=== PATIENT | female | born 1935 | race Caucasian/White ===

== ENCOUNTER 2017-05-18 12:22 | Inpatient (IN) | payer MEDICARE, OTHER ==
[~2017-05-18] VITALS: Ht 162.6 cm; Wt 94.8 kg
[2017-05-18] MEDS ORDERED: nitroGLYCERIN 0.4mg SUBLingual tab SL PRN (16:10)
[2017-05-18] MEDS ORDERED: regadenoson 0.4mg/5ml syringe IV PRN (16:10)
[2017-05-18] MEDS ORDERED: metoprolol tartrate 1mg/ml inj IV PRN (16:10)
[2017-05-18] MEDS ORDERED: aminophylline 250mg/10ml inj. IV PRN (16:10)
[2017-05-18] MEDS ORDERED: bisacodyl 10mg suppository rectal RC PRN (16:20)
[2017-05-18] MEDS ORDERED: heparin 10,000 units/1 ML INJ IV ONE (16:20)
[2017-05-18] MEDS ORDERED: glucagon, human recombinant 1mg kit SUBCUT PRN (16:20)
[2017-05-18] MEDS ORDERED: magnesium 2GM in 50ml NS 50 ML IV PRN (16:20)
[2017-05-18] MEDS ORDERED: MESSAGE TO PHARMACY PO ONE (16:20)
[2017-05-18] MEDS ORDERED: ondansetron/PF 4mg/2ml inj IV PRN (16:20)
[2017-05-18] MEDS ORDERED: mag hydrox/Alum hydrox/simeth 30ml oral suspension PO PRN (16:20)
[2017-05-18] MEDS ORDERED: magnesium 4gm in 100ml NS 100 ML IV PRN (16:20)
[2017-05-18] MEDS ORDERED: ipratropium/albuterol 3ml nebule NEB PRN (16:20)
[2017-05-18] MEDS ORDERED: dextrose 50%-water 50ml dispensing syringe IV PRN ×2 (16:20)
[2017-05-18] MEDS ORDERED: potassium Cl 20 mEq SR tablet PO PRN ×2 (16:20)
[2017-05-18] MEDS ORDERED: potassium Cl 40MEQ/NS 500ml 500 ML IV PRN ×2 (16:20)
[2017-05-18] MEDS ORDERED: dextrose ORAL solution 15 GM/59 ML bottle PO PRN ×2 (16:20)
[2017-05-18 17:11] LABS: BASOPHILS # (AUTO) 0.1 X10'3 (0-0.2); BASOPHILS % (AUTO) 0.8 % (0-1); EOSINOPHILS # (AUTO) 0.3 X10'3 (0-0.9); EOSINOPHILS % (AUTO) 3.4 % (0-6); HEMATOCRIT 35.5 % (35.0-45.0); HEMOGLOBIN 10.9 g/dl (12.0-16.0); LYMPHOCYTES % (AUTO) 12.2 % (21-51); MEAN CORPUSCULAR HEMOGLOBIN 23.4 PG (27.0-31.0); MEAN CORPUSCULAR HGB CONC 30.6 % (33.0-36.5); MEAN CORPUSCULAR VOLUME 76.5 FL (78-98); MEAN PLATELET VOLUME 8.6 FL (7.4-10.4); MONOCYTES # (AUTO) 0.7 X10'3 (0-0.9); MONOCYTES % (AUTO) 8.5 % (2-12); NEUTROPHILS # (AUTO) 6.3 X10'3 (1.8-7.7); NEUTROPHILS % (AUTO) 75.1 % (42-75); PLATELET COUNT 191 X10'3 (140-440); RED BLOOD COUNT 4.64 X10'6 (4.20-5.60); WHITE BLOOD COUNT 8.4 X10'3 (4.5-11.0)
[2017-05-18 17:22] LABS: INR 1.1 INR; PARTIAL THROMBOPLASTIN TIME 28 SECONDS (22-32); PROTHROMBIN TIME 11.1 SECONDS (9.0-12.0)
[2017-05-18 17:24] LABS: HEMOGLOBIN A1C 7.5 % (4.5-6.2)
[2017-05-18 17:34] VITALS: BP 137/70
[2017-05-18 17:34] LABS: ALANINE AMINOTRANSFERASE 16 U/L (12-78); ALBUMIN 2.4 G/DL (3.4-5.0); ALBUMIN/GLOBULIN RATIO 0.5 (1.1-1.5); ALKALINE PHOSPHATASE 56 IU/L (46-116); ANION GAP -1 (8-16); ASPARTATE AMINO TRANSFERASE 18 U/L (10-37); BILIRUBIN,TOTAL 0.8 MG/DL (0.1-1.0); BLOOD UREA NITROGEN 24 MG/DL (7-18); BUN/CREATININE RATIO 21.8 (6.6-38.0); CHLORIDE 101 MMOL/L (99-107); GLUCOSE 188 MG/DL (70-104); POTASSIUM 4.3 MMOL/L (3.5-5.1); SODIUM 142 MMOL/L (135-145); TOTAL PROTEIN 6.9 G/DL (6.4-8.2); eGFR 48 ML/MIN
[2017-05-18] MEDS ORDERED: ENOX40SY7 SUBCUT (17:34)
[2017-05-18] MEDS ORDERED: GABA-532 PO (17:34)
[2017-05-18] MEDS ORDERED: ATOR20TA PO (17:36)
[2017-05-18] MEDS ORDERED: INSU100C4 SQ (17:36)
[2017-05-18] MEDS ORDERED: TRAZ-146 PO (17:37)
[2017-05-18] MEDS ORDERED: LANTUS SQ (17:37)
[2017-05-18] MEDS ORDERED: PANT20TA3 PO (17:38)
[2017-05-18] MEDS ORDERED: METO-395 PO (17:38)
[2017-05-18] MEDS ORDERED: MONT10TA21 PO (17:39)
[2017-05-18] MEDS ORDERED: POTA10TA19 PO (17:39)
[2017-05-18] MEDS ORDERED: LYR75C PO (17:40)
[2017-05-18] MEDS ORDERED: FURO80TA3 PO (17:41)
[2017-05-18] MEDS ORDERED: DULO60CA45 PO (17:41)
[2017-05-18] MEDS ORDERED: HYDR-569 PO (17:42)
[2017-05-18] MEDS ORDERED: ZAR2.5T PO (17:43)
[2017-05-18 17:48] LABS: TOTAL CARBON DIOXIDE 41.5 MMOL/L (24-32)
[2017-05-18 18:35] LABS: ABG BASE EXCESS 12.8 mmol/L (-2.0-3.0); ABG HCO3 40.1 mmol/L (22.0-26.0); ABG OXYGEN SATURATION 94.5 % (95-98); ABG PCO2 (T) 67.3 mmHg (32.0-45.0); ABG PH (T) 7.393 (7.350-7.450); ABG PO2 (T) 73.6 mmHg (83-108); ALLEN'S TEST Positive; FCOHb 0.8 % (0.5-1.5); FLOW 3 L/min; FMetHb 0.1 % (0.3-1.12); FO2Hb 93.6 % (94-100); TOTAL HEMOGLOBIN 11.2 G/dl (12.0-16.0)
[2017-05-18] MEDS: acetaminophen 325mg tablet PO PRN (21:01)
[2017-05-18] MEDS: traZODone 50mg tablet PO SCH (21:38)
[2017-05-18] MEDS: insulin glargine (Lantus) pen - multi-dose SQ SCH (21:42)
[2017-05-18 22:00] VITALS: BP 143/75
[2017-05-19] VITALS (15 sets, daily range): BP systolic 127–182; BP diastolic 62–95
[2017-05-19 02:13] LABS: BASOPHILS % (AUTO) 0.4 % (0-1); EOSINOPHILS # (AUTO) 0.3 X10'3 (0-0.9); HEMATOCRIT 32.9 % (35.0-45.0); LYMPHOCYTES # (AUTO) 1.2 X10'3 (1.1-4.8); LYMPHOCYTES % (AUTO) 15.1 % (21-51); MEAN CORPUSCULAR HGB CONC 30.3 % (33.0-36.5); MEAN CORPUSCULAR VOLUME 75.8 FL (78-98); MEAN PLATELET VOLUME 8.2 FL (7.4-10.4); MONOCYTES # (AUTO) 0.6 X10'3 (0-0.9); MONOCYTES % (AUTO) 8.3 % (2-12); NEUTROPHILS # (AUTO) 5.6 X10'3 (1.8-7.7); NEUTROPHILS % (AUTO) 72.2 % (42-75); PLATELET COUNT 182 X10'3 (140-440); RED BLOOD COUNT 4.34 X10'6 (4.20-5.60); RED CELL DISTRIBUTION WIDTH 22.1 % (11.5-14.5); WHITE BLOOD COUNT 7.7 X10'3 (4.5-11.0)
[2017-05-19 02:36] LABS: ALANINE AMINOTRANSFERASE 17 U/L (12-78); ALBUMIN 2.3 G/DL (3.4-5.0); ALBUMIN/GLOBULIN RATIO 0.6 (1.1-1.5); ALKALINE PHOSPHATASE 48 IU/L (46-116); ANION GAP -2 (8-16); ASPARTATE AMINO TRANSFERASE 14 U/L (10-37); BILIRUBIN,TOTAL 0.8 MG/DL (0.1-1.0); BLOOD UREA NITROGEN 22 MG/DL (7-18); CALCIUM 9.5 MG/DL (8.5-10.1); CHLORIDE 100 MMOL/L (99-107); CHOL/HDL RATIO 2.8 (0.00-4.99); CHOLESTEROL 74 MG/DL (0-200); GLUCOSE 155 MG/DL (70-104); HDL CHOLESTEROL 26 MG/DL (35-60); LDL CHOLESTEROL 41 MG/DL (50-100); MAGNESIUM 1.7 MG/DL (1.5-2.4); POTASSIUM 3.6 MMOL/L (3.5-5.1); SODIUM 140 MMOL/L (135-145); TOTAL PROTEIN 6.4 G/DL (6.4-8.2); TRIGLYCERIDES 78 MG/DL (20-135); eGFR 53 ML/MIN
[2017-05-19 02:38] LABS: TOTAL CARBON DIOXIDE 42.3 MMOL/L (24-32)
[2017-05-19] MEDS: heparin 10,000 units/1 ML INJ IV PRN ×2 (03:12→17:43)
[2017-05-19] MEDS: K and/or MAG REPLACEMENT MC SCH (08:00)
[2017-05-19] MEDS ORDERED: regadenoson 0.4mg/5ml syringe IV ONE (09:12)
[2017-05-19] MEDS ORDERED: aminophylline inj. 10 ML IV ONE (09:12)
[2017-05-19] MEDS: lisinopril 5mg tablet PO SCH (10:59)
[2017-05-19] MEDS: metoprolol succinate 25mg (24-HOUR) SR. Tablet PO SCH (10:59)
[2017-05-19] MEDS: acetaminophen 325mg tablet PO PRN (12:26)
[2017-05-19] MEDS: insulin Lispro (HumaLOG) vial - multi-dose SQ SCH ×2 (13:55→19:12)
[2017-05-19] MEDS ORDERED: ipratropium/albuterol 3ml nebule NEB PRN (17:10)
[2017-05-19] MEDS: ipratropium/albuterol 3ml nebule NEB SCH ×2 (19:12→22:56)
[2017-05-19] MEDS: furosemide 40mg/4ml inj IV SCH (19:54)
[2017-05-19] MEDS: traZODone 50mg tablet PO SCH (21:30)
[2017-05-19] MEDS: insulin glargine (Lantus) pen - multi-dose SQ SCH (21:35)
[2017-05-20 06:00] VITALS: BP 151/66
[2017-05-20 06:20] LABS: BASOPHILS % (AUTO) 0.5 % (0-1); EOSINOPHILS # (AUTO) 0.2 X10'3 (0-0.9); EOSINOPHILS % (AUTO) 2.9 % (0-6); HEMATOCRIT 32.5 % (35.0-45.0); LYMPHOCYTES % (AUTO) 12.5 % (21-51); MEAN CORPUSCULAR HGB CONC 30.9 % (33.0-36.5); MEAN CORPUSCULAR VOLUME 74.7 FL (78-98); MEAN PLATELET VOLUME 8.9 FL (7.4-10.4); MONOCYTES # (AUTO) 0.7 X10'3 (0-0.9); MONOCYTES % (AUTO) 8.8 % (2-12); NEUTROPHILS % (AUTO) 75.3 % (42-75); PLATELET COUNT 197 X10'3 (140-440); RED BLOOD COUNT 4.36 X10'6 (4.20-5.60); RED CELL DISTRIBUTION WIDTH 21.3 % (11.5-14.5)
[2017-05-20 06:50] LABS: ALANINE AMINOTRANSFERASE 14 U/L (12-78); ALBUMIN 2.3 G/DL (3.4-5.0); ALBUMIN/GLOBULIN RATIO 0.6 (1.1-1.5); ALKALINE PHOSPHATASE 49 IU/L (46-116); ANION GAP 1 (8-16); ASPARTATE AMINO TRANSFERASE 18 U/L (10-37); BILIRUBIN,TOTAL 0.9 MG/DL (0.1-1.0); BLOOD UREA NITROGEN 18 MG/DL (7-18); CALCIUM 9.7 MG/DL (8.5-10.1); CHLORIDE 98 MMOL/L (99-107); GLUCOSE 156 MG/DL (70-104); MAGNESIUM 1.4 MG/DL (1.5-2.4); SODIUM 140 MMOL/L (135-145); TOTAL PROTEIN 6.3 G/DL (6.4-8.2); eGFR 53 ML/MIN
[2017-05-20 07:17] LABS: POTASSIUM 2.9 MMOL/L (3.5-5.1)
[2017-05-20 07:18] LABS: TOTAL CARBON DIOXIDE 40.7 MMOL/L (24-32)
[2017-05-20] MEDS: acetaminophen 325mg tablet PO PRN ×2 (07:31→13:56)
[2017-05-20] MEDS: metoprolol succinate 25mg (24-HOUR) SR. Tablet PO SCH (07:31)
[2017-05-20] MEDS: lisinopril 5mg tablet PO SCH (07:31)
[2017-05-20] MEDS ORDERED: potassium Cl oral solution 20 MEQ/15 ML PO PRN (08:04)
[2017-05-20 08:06] LABS: % IRON SATURATION 12 % (11-46); IRON 33 UG/DL (49-151); TOTAL IRON BINDING CAPACITY 285 UG/DL (259-388)
[2017-05-20] MEDS: ipratropium/albuterol 3ml nebule NEB SCH ×5 (08:18→23:51)
[2017-05-20] MEDS: furosemide 40mg/4ml inj IV SCH ×2 (09:09→21:00)
[2017-05-20] MEDS: potassium Cl oral solution 20 MEQ/15 ML PO PRN ×3 (09:10→17:43)
[2017-05-20] MEDS: K and/or MAG REPLACEMENT MC SCH (09:10)
[2017-05-20] MEDS: insulin Lispro (HumaLOG) vial - multi-dose SQ SCH ×4 (09:12→21:03)
[2017-05-20] MEDS ORDERED: potassium Cl 40MEQ/NS 500ml 500 ML IV PRN ×2 (09:15)
[2017-05-20] MEDS ORDERED: potassium Cl 20 mEq SR tablet PO PRN ×2 (09:15)
[2017-05-20] MEDS ORDERED: magnesium Cl slow-release 64mg tablet PO PRN (09:15)
[2017-05-20 10:30] VITALS: BP 157/74
[2017-05-20 11:10] LABS: ABG BASE EXCESS 14.6 mmol/L (-2.0-3.0); ABG HCO3 40.7 mmol/L (22.0-26.0); ABG OXYGEN SATURATION 91.6 % (95-98); ABG PCO2 (T) 58.7 mmHg (32.0-45.0); ABG PH (T) 7.459 (7.350-7.450); ABG PO2 (T) 62.1 mmHg (83-108); ALLEN'S TEST Positive; FCOHb 1.3 % (0.5-1.5); FLOW 3 L/min; FMetHb 0.1 % (0.3-1.12); FO2Hb 90.3 % (94-100); TOTAL HEMOGLOBIN 11.1 G/dl (12.0-16.0)
[2017-05-20 13:00] VITALS: BP 143/70
[2017-05-20] MEDS ORDERED: methylPREDNISolone sod succ 125mg/2ml vial IV ONE (16:15)
[2017-05-20 18:00] VITALS: BP 156/74
[2017-05-20 18:17] LABS: CLARITY,URINE CLEAR (Clear); COLOR,URINE YELLOW (Yellow); GLUCOSE, URINE NEGATIVE (Neg); KETONES,URINE NEGATIVE (Neg); LEUKOCYTE ESTERASE ,URINE LARGE (Neg); NITRITES, URINE NEGATIVE (Neg); OCCULT BLOOD,URINE MODERATE (Neg); PROTEIN,URINE 30 mg/dl (Neg)
[2017-05-20 18:19] LABS: UA COLLECTION TYPE CLN CATCH MIDSTREAM
[2017-05-20 18:24] LABS: BACTERIA,URINE 2+ /HPF (Neg); SQUAMOUS EPITHELIAL CELL,UR FEW /LPF (FEW); TRANSITIONAL EPI CELLS,URINE FEW /HPF; WBC,URINE 20-30 /HPF (0-4)
[2017-05-20 20:59] VITALS: BP 142/69
[2017-05-20] MEDS: traZODone 50mg tablet PO SCH (21:00)
[2017-05-20] MEDS: gabapentin 300mg capsule PO SCH (21:00)
[2017-05-20] MEDS: insulin glargine (Lantus) pen - multi-dose SQ SCH ×2 (21:05→21:07)
[2017-05-20 22:00] VITALS: BP 144/67
[2017-05-21] VITALS (19 sets, daily range): BP systolic 102–166; BP diastolic 59–99
[2017-05-21] MEDS: methylPREDNISolone sod succ 125mg/2ml vial IV SCH ×4 (00:37→23:09)
[2017-05-21] MEDS: heparin 10,000 units/1 ML INJ IV PRN (02:30)
[2017-05-21] MEDS: ipratropium/albuterol 3ml nebule NEB SCH ×5 (07:18→23:10)
[2017-05-21] MEDS: pantoprazole 40mg Tablet.DR PO SCH (07:30)
[2017-05-21] MEDS: montelukast 10mg tablet PO SCH (08:00)
[2017-05-21] MEDS: potassium chloride 10mEq ER tablet PO SCH (08:00)
[2017-05-21] MEDS: lisinopril 5mg tablet PO SCH (08:00)
[2017-05-21] MEDS: duloxetine 30mg CAPSULE.DR PO SCH (08:00)
[2017-05-21] MEDS: gabapentin 300mg capsule PO SCH ×3 (08:00→20:15)
[2017-05-21] MEDS: K and/or MAG REPLACEMENT MC SCH (08:00)
[2017-05-21] MEDS: atorvastatin 20mg tablet PO SCH (08:00)
[2017-05-21] MEDS: furosemide 40mg/4ml inj IV SCH ×2 (08:08→19:09)
[2017-05-21] MEDS: metoprolol succinate 25mg (24-HOUR) SR. Tablet PO SCH (08:08)
[2017-05-21 08:21] LABS: BASOPHILS % (AUTO) 0.1 % (0-1); EOSINOPHILS % (AUTO) 0.1 % (0-6); HEMATOCRIT 34.7 % (35.0-45.0); HEMOGLOBIN 11.3 g/dl (12.0-16.0); LYMPHOCYTES # (AUTO) 0.6 X10'3 (1.1-4.8); LYMPHOCYTES % (AUTO) 11.1 % (21-51); MEAN CORPUSCULAR HEMOGLOBIN 23.7 PG (27.0-31.0); MEAN CORPUSCULAR HGB CONC 32.4 % (33.0-36.5); MEAN CORPUSCULAR VOLUME 73.2 FL (78-98); MEAN PLATELET VOLUME 8.8 FL (7.4-10.4); MONOCYTES # (AUTO) 0.1 X10'3 (0-0.9); MONOCYTES % (AUTO) 1.3 % (2-12); NEUTROPHILS # (AUTO) 4.9 X10'3 (1.8-7.7); NEUTROPHILS % (AUTO) 87.4 % (42-75); PLATELET COUNT 216 X10'3 (140-440); RED BLOOD COUNT 4.75 X10'6 (4.20-5.60); RED CELL DISTRIBUTION WIDTH 20.4 % (11.5-14.5); WHITE BLOOD COUNT 5.6 X10'3 (4.5-11.0)
[2017-05-21] MEDS ORDERED: cefazolin 1gm/NS 100mL 100 ML IV ONE (08:30)
[2017-05-21] MEDS: insulin Lispro (HumaLOG) vial - multi-dose SQ SCH ×3 (08:32→19:10)
[2017-05-21 08:35] LABS: ALANINE AMINOTRANSFERASE 15 U/L (12-78); ALBUMIN 2.4 G/DL (3.4-5.0); ALBUMIN/GLOBULIN RATIO 0.5 (1.1-1.5); ALKALINE PHOSPHATASE 52 IU/L (46-116); ANION GAP 5 (8-16); ASPARTATE AMINO TRANSFERASE 15 U/L (10-37); BILIRUBIN,TOTAL 0.8 MG/DL (0.1-1.0); BLOOD UREA NITROGEN 20 MG/DL (7-18); BUN/CREATININE RATIO 16.7 (6.6-38.0); CALCIUM 10.2 MG/DL (8.5-10.1); CHLORIDE 99 MMOL/L (99-107); GLUCOSE 278 MG/DL (70-104); MAGNESIUM 1.6 MG/DL (1.5-2.4); POTASSIUM 4.4 MMOL/L (3.5-5.1); SODIUM 144 MMOL/L (135-145); TOTAL CARBON DIOXIDE 39.8 MMOL/L (24-32); TOTAL PROTEIN 7.1 G/DL (6.4-8.2); eGFR 43 ML/MIN
[2017-05-21] MEDS ORDERED: albuterol 60 PUFF/8GM Inhaler IH ONE (09:00)
[2017-05-21] MEDS ORDERED: sevoflurane 250ml liquid IH ONE (09:00)
[2017-05-21] MEDS ORDERED: cloNIDine hcl/PF 100mcg/ml inj ONE (09:11)
[2017-05-21] MEDS ORDERED: midazolam 2 mg/2 ml injection ONE (09:17)
[2017-05-21] MEDS ORDERED: fentaNYL/PF 50MCG/1 ML 2ML syringe ONE (09:35)
[2017-05-21] MEDS ORDERED: propofol inj 20 ML IV ONE (09:39)
[2017-05-21] MEDS ORDERED: LIDOcaine 2% (20mg/ml) 5ml vial ONE (09:39)
[2017-05-21] MEDS ORDERED: ringers solution, lacted 1,000 ML IV SCH (09:57)
[2017-05-21] MEDS ORDERED: ondansetron/PF 4mg/2ml inj IV PRN (10:00)
[2017-05-21] MEDS ORDERED: meperidine/PF 25mg/ml syringe IV PRN ×2 (10:00)
[2017-05-21] MEDS ORDERED: proCHLORperazine 10 MG/2 ml inj IV PRN (10:00)
[2017-05-21] MEDS ORDERED: fentaNYL/PF 50MCG/1 ML 2ML syringe IV PRN (10:00)
[2017-05-21] MEDS ORDERED: meperidine/PF 25mg/ml syringe IV ONE (10:00)
[2017-05-21] MEDS ORDERED: insulin regular, human vial - multi-dose ONE (10:03)
[2017-05-21] MEDS ORDERED: ceFAZolin 1000mg inj ONE (10:20)
[2017-05-21] MEDS ORDERED: dexamethasone sod phosphate 4mg/ml inj. ONE (10:20)
[2017-05-21] MEDS ORDERED: ondansetron/PF 4mg/2ml inj ONE (10:20)
[2017-05-21] MEDS ORDERED: albuterol 2.5 MG/3 ML nebule NEB ONE (11:15)
[2017-05-21] MEDS: fentaNYL/PF 50MCG/1 ML 2ML syringe IV PRN ×4 (11:19→12:04)
[2017-05-21] MEDS: HYDROcodone/acetaminophen 10/325mg tab PO PRN ×2 (12:46→23:09)
[2017-05-21] MEDS ORDERED: HYDROcodone/acetaminophen 10/325mg tab PO ONE (14:40)
[2017-05-21] MEDS: cefazolin 1gm/NS 100mL 100 ML IV SCH ×2 (16:35→23:10)
[2017-05-21] MEDS: traZODone 50mg tablet PO SCH (19:09)
[2017-05-21] MEDS: insulin glargine (Lantus) pen - multi-dose SQ SCH (21:17)
[2017-05-22 02:00] VITALS: BP 110/55
[2017-05-22 05:00] VITALS: BP 151/70
[2017-05-22] MEDS: HYDROcodone/acetaminophen 10/325mg tab PO PRN ×3 (05:14→17:55)
[2017-05-22 06:16] LABS: BASOPHILS % (AUTO) 0.1 % (0-1); EOSINOPHILS # (AUTO) 0.1 X10'3 (0-0.9); EOSINOPHILS % (AUTO) 1.3 % (0-6); HEMATOCRIT 32.2 % (35.0-45.0); HEMOGLOBIN 9.8 g/dl (12.0-16.0); LYMPHOCYTES # (AUTO) 0.6 X10'3 (1.1-4.8); LYMPHOCYTES % (AUTO) 5.6 % (21-51); MEAN CORPUSCULAR HEMOGLOBIN 23.1 PG (27.0-31.0); MEAN CORPUSCULAR HGB CONC 30.3 % (33.0-36.5); MEAN CORPUSCULAR VOLUME 76.3 FL (78-98); MEAN PLATELET VOLUME 9.1 FL (7.4-10.4); MONOCYTES # (AUTO) 0.2 X10'3 (0-0.9); MONOCYTES % (AUTO) 2.1 % (2-12); NEUTROPHILS # (AUTO) 9.7 X10'3 (1.8-7.7); NEUTROPHILS % (AUTO) 90.9 % (42-75); PLATELET COUNT 229 X10'3 (140-440); RED BLOOD COUNT 4.21 X10'6 (4.20-5.60); RED CELL DISTRIBUTION WIDTH 22.1 % (11.5-14.5); WHITE BLOOD COUNT 10.6 X10'3 (4.5-11.0)
[2017-05-22 07:05] LABS: ALANINE AMINOTRANSFERASE 15 U/L (12-78); ALBUMIN 2.5 G/DL (3.4-5.0); ALBUMIN/GLOBULIN RATIO 0.6 (1.1-1.5); ALKALINE PHOSPHATASE 49 IU/L (46-116); ANION GAP 6 (8-16); ASPARTATE AMINO TRANSFERASE 20 U/L (10-37); BILIRUBIN,TOTAL 0.6 MG/DL (0.1-1.0); BLOOD UREA NITROGEN 37 MG/DL (7-18); BUN/CREATININE RATIO 26.4 (6.6-38.0); CHLORIDE 96 MMOL/L (99-107); GLUCOSE 263 MG/DL (70-104); MAGNESIUM 1.7 MG/DL (1.5-2.4); POTASSIUM 4.2 MMOL/L (3.5-5.1); SODIUM 141 MMOL/L (135-145); TOTAL PROTEIN 6.9 G/DL (6.4-8.2); eGFR 36 ML/MIN
[2017-05-22] MEDS: methylPREDNISolone sod succ 125mg/2ml vial IV SCH (07:35)
[2017-05-22] MEDS: pantoprazole 40mg Tablet.DR PO SCH (07:35)
[2017-05-22] MEDS: furosemide 40mg/4ml inj IV SCH (07:35)
[2017-05-22] MEDS: potassium chloride 10mEq ER tablet PO SCH (07:36)
[2017-05-22] MEDS: duloxetine 30mg CAPSULE.DR PO SCH (07:36)
[2017-05-22] MEDS: K and/or MAG REPLACEMENT MC SCH (07:36)
[2017-05-22] MEDS: montelukast 10mg tablet PO SCH (07:37)
[2017-05-22] MEDS: metoprolol succinate 25mg (24-HOUR) SR. Tablet PO SCH (07:37)
[2017-05-22] MEDS: lisinopril 5mg tablet PO SCH (07:37)
[2017-05-22] MEDS: gabapentin 300mg capsule PO SCH ×2 (07:37→12:24)
[2017-05-22] MEDS: atorvastatin 20mg tablet PO SCH (07:37)
[2017-05-22] MEDS: ipratropium/albuterol 3ml nebule NEB SCH ×5 (08:48→23:22)
[2017-05-22] MEDS: insulin Lispro (HumaLOG) vial - multi-dose SQ SCH ×3 (09:04→19:17)
[2017-05-22] MEDS: apixaban 5mg tablet PO SCH ×2 (09:05→19:18)
[2017-05-22] MEDS ORDERED: levoFLOXACIN 500mg tablet PO ONE (13:25)
[2017-05-22 18:00] VITALS: BP 131/64
[2017-05-22] MEDS: traZODone 50mg tablet PO SCH (19:18)
[2017-05-22] MEDS: gabapentin 100mg capsule PO SCH (19:18)
[2017-05-22] MEDS: insulin glargine (Lantus) pen - multi-dose SQ SCH (21:38)
[2017-05-22 22:00] VITALS: BP 104/61
[2017-05-23] MEDS: HYDROcodone/acetaminophen 10/325mg tab PO PRN ×3 (00:09→17:32)
[2017-05-23 06:00] VITALS: BP 103/64
[2017-05-23 07:05] LABS: BASOPHILS % (AUTO) 0 % (0-1); EOSINOPHILS # (AUTO) 0.1 X10'3 (0-0.9); EOSINOPHILS % (AUTO) 1.2 % (0-6); HEMATOCRIT 32.2 % (35.0-45.0); HEMOGLOBIN 9.8 g/dl (12.0-16.0); LYMPHOCYTES # (AUTO) 1.1 X10'3 (1.1-4.8); LYMPHOCYTES % (AUTO) 10.1 % (21-51); MEAN CORPUSCULAR HEMOGLOBIN 23.1 PG (27.0-31.0); MEAN CORPUSCULAR HGB CONC 30.4 % (33.0-36.5); MEAN CORPUSCULAR VOLUME 76.1 FL (78-98); MONOCYTES # (AUTO) 0.9 X10'3 (0-0.9); MONOCYTES % (AUTO) 7.9 % (2-12); NEUTROPHILS # (AUTO) 8.8 X10'3 (1.8-7.7); NEUTROPHILS % (AUTO) 80.8 % (42-75); PLATELET COUNT 258 X10'3 (140-440); RED BLOOD COUNT 4.23 X10'6 (4.20-5.60); RED CELL DISTRIBUTION WIDTH 21.9 % (11.5-14.5); WHITE BLOOD COUNT 10.9 X10'3 (4.5-11.0)
[2017-05-23 07:27] LABS: ALANINE AMINOTRANSFERASE 11 U/L (12-78); ALBUMIN 2.4 G/DL (3.4-5.0); ALBUMIN/GLOBULIN RATIO 0.6 (1.1-1.5); ALKALINE PHOSPHATASE 46 IU/L (46-116); ANION GAP 3 (8-16); ASPARTATE AMINO TRANSFERASE 15 U/L (10-37); BILIRUBIN,TOTAL 0.5 MG/DL (0.1-1.0); BLOOD UREA NITROGEN 48 MG/DL (7-18); BUN/CREATININE RATIO 36.9 (6.6-38.0); CALCIUM 10.1 MG/DL (8.5-10.1); CHLORIDE 98 MMOL/L (99-107); GLUCOSE 147 MG/DL (70-104); MAGNESIUM 1.6 MG/DL (1.5-2.4); POTASSIUM 4.9 MMOL/L (3.5-5.1); SODIUM 137 MMOL/L (135-145); TOTAL CARBON DIOXIDE 36.5 MMOL/L (24-32); TOTAL PROTEIN 6.4 G/DL (6.4-8.2); eGFR 39 ML/MIN
[2017-05-23] MEDS: lisinopril 5mg tablet PO SCH (08:00)
[2017-05-23] MEDS: furosemide 20MG tablet PO SCH (08:00)
[2017-05-23] MEDS: metoprolol succinate 25mg (24-HOUR) SR. Tablet PO SCH (08:00)
[2017-05-23] MEDS: potassium chloride 10mEq ER tablet PO SCH (08:00)
[2017-05-23] MEDS: K and/or MAG REPLACEMENT MC SCH (08:00)
[2017-05-23] MEDS: duloxetine 30mg CAPSULE.DR PO SCH (08:07)
[2017-05-23] MEDS: montelukast 10mg tablet PO SCH (08:07)
[2017-05-23] MEDS: atorvastatin 20mg tablet PO SCH (08:07)
[2017-05-23] MEDS: gabapentin 100mg capsule PO SCH ×2 (08:07→13:13)
[2017-05-23] MEDS: apixaban 5mg tablet PO SCH ×2 (08:07→20:25)
[2017-05-23] MEDS: pantoprazole 40mg Tablet.DR PO SCH (08:07)
[2017-05-23] MEDS: predniSONE 20 mg tablet PO SCH (08:08)
[2017-05-23] MEDS: ipratropium/albuterol 3ml nebule NEB SCH ×5 (08:29→23:26)
[2017-05-23] MEDS: insulin Lispro (HumaLOG) vial - multi-dose SQ SCH ×3 (09:14→19:13)
[2017-05-23 11:00] VITALS: BP 122/55
[2017-05-23] MEDS: levoFLOXACIN 250mg tablet PO SCH (11:52)
[2017-05-23 18:00] VITALS: BP 114/63
[2017-05-23] MEDS: gabapentin 300mg capsule PO SCH (20:25)
[2017-05-23] MEDS: traZODone 50mg tablet PO SCH (20:25)
[2017-05-23] MEDS: insulin glargine (Lantus) pen - multi-dose SQ SCH (20:51)
[2017-05-23 22:00] VITALS: BP 106/57
[2017-05-24] MEDS: HYDROcodone/acetaminophen 10/325mg tab PO PRN ×3 (02:09→14:53)
[2017-05-24 06:00] VITALS: BP 126/77
[2017-05-24 06:36] LABS: MAGNESIUM 1.8 MG/DL (1.5-2.4); POTASSIUM 4.8 MMOL/L (3.5-5.1)
[2017-05-24] MEDS: ipratropium/albuterol 3ml nebule NEB SCH ×2 (07:59→12:08)
[2017-05-24] MEDS: K and/or MAG REPLACEMENT MC SCH (08:00)
[2017-05-24] MEDS: insulin Lispro (HumaLOG) vial - multi-dose SQ SCH (08:52)
[2017-05-24] MEDS: pantoprazole 40mg Tablet.DR PO SCH (09:01)
[2017-05-24] MEDS: duloxetine 30mg CAPSULE.DR PO SCH (09:02)
[2017-05-24] MEDS: apixaban 5mg tablet PO SCH (09:02)
[2017-05-24] MEDS: furosemide 20MG tablet PO SCH (09:05)
[2017-05-24] MEDS: atorvastatin 20mg tablet PO SCH (09:05)
[2017-05-24] MEDS: potassium chloride 10mEq ER tablet PO SCH (09:05)
[2017-05-24] MEDS: gabapentin 300mg capsule PO SCH ×2 (09:06→15:25)
[2017-05-24] MEDS: montelukast 10mg tablet PO SCH (09:07)
[2017-05-24] MEDS: predniSONE 20 mg tablet PO SCH (09:07)
[2017-05-24] MEDS: metoprolol succinate 25mg (24-HOUR) SR. Tablet PO SCH (09:08)
[2017-05-24] MEDS: lisinopril 5mg tablet PO SCH (09:08)
[2017-05-24 10:00] VITALS: BP 107/54
[2017-05-24] MEDS: levoFLOXACIN 250mg tablet PO SCH (15:25)
[2017-05-24] MEDS ORDERED: lactobacillus rhamnosus 10,000 MMU CELLS/CAPSULE PO SCH (17:30)
== END 2017-05-24 16:30 | DRG 492 ==
LOC: ORTHO 4S 15:22 → PACU 05-21 08:52 → ORTHO 4S 05-21 13:04
PROVIDERS: ADMIT Internal Medicine; ATTEND Internal Medicine
PROC: 5A09357 Assistance with Respiratory Ventilation, Less than 24 Consecutive Hours, Continuous Positive Airway Pressure (ICD-10-PCS; 2017-05-19)
PROC: 4A02XM4 Measurement of Cardiac Total Activity, External Approach (ICD-10-PCS; 2017-05-19)
PROC: 3E073KZ Introduction of Other Diagnostic Substance into Coronary Artery, Percutaneous Approach (ICD-10-PCS; 2017-05-19)
PROC: 0QSH04Z Reposition Left Tibia with Internal Fixation Device, Open Approach (ICD-10-PCS; 2017-05-21)
PROC: 0QSK04Z Reposition Left Fibula with Internal Fixation Device, Open Approach (ICD-10-PCS; principal; 2017-05-21 09:09)
DX: S82.842A Displaced bimalleolar fracture of left lower leg, initial encounter for closed fracture (principal); I50.33 Acute on chronic diastolic (congestive) heart failure; E11.22 Type 2 diabetes mellitus with diabetic chronic kidney disease; I27.20 Pulmonary hypertension, unspecified; E66.01 Morbid (severe) obesity due to excess calories; I08.2 Rheumatic disorders of both aortic and tricuspid valves; N39.0 Urinary tract infection, site not specified; I13.0 Hypertensive heart and chronic kidney disease with heart failure and stage 1 through stage 4 chronic kidney disease, or unspecified chronic kidney disease; I48.2 Chronic atrial fibrillation; W18.39XA Other fall on same level, initial encounter; J44.9 Chronic obstructive pulmonary disease, unspecified; B96.5 Pseudomonas (aeruginosa) (mallei) (pseudomallei) as the cause of diseases classified elsewhere; D50.9 Iron deficiency anemia, unspecified; E78.00 Pure hypercholesterolemia, unspecified; E78.5 Hyperlipidemia, unspecified; E87.6 Hypokalemia; N18.9 Chronic kidney disease, unspecified; G47.33 Obstructive sleep apnea (adult) (pediatric); Z96.652 Presence of left artificial knee joint; Z96.649 Presence of unspecified artificial hip joint; Z99.81 Dependence on supplemental oxygen; Z90.49 Acquired absence of other specified parts of digestive tract; Z90.710 Acquired absence of both cervix and uterus; Z88.6 Allergy status to analgesic agent; Z79.899 Other long term (current) drug therapy; Z79.01 Long term (current) use of anticoagulants; Z79.4 Long term (current) use of insulin; Z86.73 Personal history of transient ischemic attack (TIA), and cerebral infarction without residual deficits; Z87.891 Personal history of nicotine dependence; Y93.89 Activity, other specified; Y92.098 Other place in other non-institutional residence as the place of occurrence of the external cause; Y99.8 Other external cause status; Z68.35 Body mass index [BMI] 35.0-35.9, adult
CPT/HCPCS: 36415; 36600; 71045; 73610; 78452; 80053; 80061; 81001; 82803; 82948; 83036; 83540; 83550; 83735; 83880; 84132; 85018; 85025; 85610; 85730; 87070; 87077; 87088; 87186; 92616; 93005; 93017; 93306; 94640; 94660; 94760; 97110; 97161; 97530; A4333; A6212; A6222; A6258; A6449; A7000; A9500; C1713; J0280; J0690; J0735; J1100; J1644; J1815; J1940; J2001; J2250; J2405; J2704; J2785; J2930; J3010; J3370; J7030; J7120; J7512

== ENCOUNTER 2017-06-17 15:41 | Inpatient (IN) | payer MEDICARE, OTHER ==
[~2017-06-17] VITALS: Ht 162.6 cm; Wt 91.4 kg
[~2017-06-17 15:41] MED LIST: ATOR20TA PO; DULO60CA45 PO; ENOX40SY7 SUBCUT; FURO80TA3 PO; GABA-532 PO; HYDR-569 PO; INSU100C4 SQ; LANTUS SQ; LYR75C PO; METO-395 PO; MONT10TA21 PO; PANT20TA3 PO; POTA10TA19 PO; TRAZ-146 PO; ZAR2.5T PO
[2017-06-17] MEDS ORDERED: furosemide 40mg/4ml inj IV ONE (15:55)
[2017-06-17] MEDS ORDERED: nitroGLYCERIN-Tridil 50MG/D5W 250 ML IV SCH (15:55)
[2017-06-17 16:21] LABS: BASOPHILS % (AUTO) 0.3 % (0-1); EOSINOPHILS # (AUTO) 0.3 X10'3 (0-0.9); EOSINOPHILS % (AUTO) 2.2 % (0-6); HEMATOCRIT 31.9 % (35.0-45.0); HEMOGLOBIN 10.2 g/dl (12.0-16.0); LYMPHOCYTES # (AUTO) 0.7 X10'3 (1.1-4.8); LYMPHOCYTES % (AUTO) 5.5 % (21-51); MEAN CORPUSCULAR HEMOGLOBIN 24.7 PG (27.0-31.0); MEAN CORPUSCULAR HGB CONC 31.9 % (33.0-36.5); MEAN CORPUSCULAR VOLUME 77.4 FL (78-98); MEAN PLATELET VOLUME 7.8 FL (7.4-10.4); MONOCYTES # (AUTO) 0.7 X10'3 (0-0.9); MONOCYTES % (AUTO) 5.4 % (2-12); NEUTROPHILS # (AUTO) 10.5 X10'3 (1.8-7.7); NEUTROPHILS % (AUTO) 86.6 % (42-75); PLATELET COUNT 221 X10'3 (140-440); RED BLOOD COUNT 4.12 X10'6 (4.20-5.60); RED CELL DISTRIBUTION WIDTH 24.2 % (11.5-14.5); WHITE BLOOD COUNT 12.2 X10'3 (4.5-11.0)
[2017-06-17 16:31] LABS: INR 1.5 INR; PARTIAL THROMBOPLASTIN TIME 35 SECONDS (22-32); PROTHROMBIN TIME 15.4 SECONDS (9.0-12.0)
[2017-06-17 16:32] LABS: ABG BASE EXCESS 8.5 mmol/L (-2.0-3.0); ABG OXYGEN SATURATION 97.1 % (95-98); ABG PH (T) 7.391 (7.350-7.450); ABG PO2 (T) 100.8 mmHg (83-108); ALLEN'S TEST Positive; FCOHb 2.2 % (0.5-1.5); FMetHb 0.1 % (0.3-1.12); FO2Hb 94.9 % (94-100); TOTAL HEMOGLOBIN 10.9 G/dl (12.0-16.0)
[2017-06-17] MEDS ORDERED: dextrose 50%-water 50ml dispensing syringe IV ONE (16:35)
[2017-06-17 16:44] LABS: ALANINE AMINOTRANSFERASE 12 U/L (12-78); ALBUMIN/GLOBULIN RATIO 0.8 (1.1-1.5); ALKALINE PHOSPHATASE 83 IU/L (46-116); ANION GAP 6 (8-16); ASPARTATE AMINO TRANSFERASE 20 U/L (10-37); BILIRUBIN,TOTAL 1.4 MG/DL (0.1-1.0); BLOOD UREA NITROGEN 18 MG/DL (7-18); BUN/CREATININE RATIO 13.5 (6.6-38.0); CALCIUM 9.8 MG/DL (8.5-10.1); CHLORIDE 100 MMOL/L (99-107); CREATININE 1.33 MG/DL (0.40-0.90); GLUCOSE 112 MG/DL (70-104); POTASSIUM 4.2 MMOL/L (3.5-5.1); SODIUM 143 MMOL/L (135-145); TOTAL CARBON DIOXIDE 37.2 MMOL/L (24-32); eGFR 38 ML/MIN
[2017-06-17] MEDS ORDERED: methylPREDNISolone sod succ 125mg/2ml vial IV ONE ×2 (17:30→21:00)
[2017-06-17] MEDS ORDERED: terbutaline 1 mg/ml inj SQ STA (19:07)
[2017-06-17] MEDS ORDERED: magnesium 2GM in 50ml NS 50 ML IV ONE (19:10)
[2017-06-17] MEDS ORDERED: nitroGLYCERIN-Tridil 50MG/D5W 250 ML IV PRN ×2 (19:15→20:10)
[2017-06-17] MEDS ORDERED: potassium Cl 40MEQ/NS 500ml 500 ML IV PRN ×2 (19:40)
[2017-06-17] MEDS ORDERED: magnesium Cl slow-release 64mg tablet PO PRN (19:40)
[2017-06-17] MEDS ORDERED: magnesium hydroxide 30ml (MOM) UD suspension PO PRN (19:40)
[2017-06-17] MEDS ORDERED: acetaminophen 325mg tablet PO PRN ×2 (19:40)
[2017-06-17] MEDS: K and/or MAG REPLACEMENT MC SCH (19:40)
[2017-06-17] MEDS ORDERED: normal saline 1000ml 1,000 ML IV SCH (19:40)
[2017-06-17] MEDS ORDERED: ondansetron/PF 4mg/2ml inj IV PRN (19:40)
[2017-06-17] MEDS ORDERED: potassium Cl 20 mEq SR tablet PO PRN (19:40)
[2017-06-17] MEDS ORDERED: mag hydrox/Alum hydrox/simeth 30ml oral suspension PO PRN (19:40)
[2017-06-17] MEDS ORDERED: magnesium 4gm in 100ml NS 100 ML IV PRN (19:40)
[2017-06-17] MEDS ORDERED: magnesium 2GM in 50ml NS 50 ML IV PRN (19:40)
[2017-06-17 20:00] VITALS: BP 119/69
[2017-06-17] MEDS ORDERED: furosemide 10 MG/1 ML 10ml inj IV ONE (20:00)
[2017-06-17 21:00] VITALS: BP 122/55
[2017-06-17] MEDS: pantoprazole 40 MG vial IV SCH (21:06)
[2017-06-17] MEDS: heparin, porcine 5000 units/ml vial SQ SCH (21:07)
[2017-06-17] MEDS ORDERED: MESSAGE TO PHARMACY PO ONE (21:50)
[2017-06-17] MEDS ORDERED: dextrose 50%-water 50ml dispensing syringe IV PRN ×2 (21:50)
[2017-06-17] MEDS ORDERED: dextrose ORAL solution 15 GM/59 ML bottle PO PRN ×2 (21:50)
[2017-06-17] MEDS ORDERED: glucagon, human recombinant 1mg kit SUBCUT PRN (21:50)
[2017-06-17] MEDS: insulin glargine (Lantus) pen - multi-dose SQ SCH (22:12)
[2017-06-17] MEDS: ipratropium/albuterol 3ml nebule NEB SCH (22:25)
[2017-06-17 23:00] VITALS: BP 113/56
[2017-06-18] VITALS (15 sets, daily range): BP systolic 101–141; BP diastolic 34–79
[2017-06-18] MEDS ORDERED: heparin, porcine 5000 units/ml vial SQ SCH
[2017-06-18] MEDS: ipratropium/albuterol 3ml nebule NEB SCH ×6 (02:21→22:26)
[2017-06-18 04:15] LABS: BASOPHILS # (AUTO) 0.1 X10'3 (0-0.2); BASOPHILS % (AUTO) 0.9 % (0-1); EOSINOPHILS # (AUTO) 0.1 X10'3 (0-0.9); EOSINOPHILS % (AUTO) 1.4 % (0-6); HEMATOCRIT 28.6 % (35.0-45.0); LYMPHOCYTES # (AUTO) 0.6 X10'3 (1.1-4.8); LYMPHOCYTES % (AUTO) 5.7 % (21-51); MEAN CORPUSCULAR HEMOGLOBIN 24.4 PG (27.0-31.0); MEAN CORPUSCULAR HGB CONC 31.5 % (33.0-36.5); MEAN CORPUSCULAR VOLUME 77.6 FL (78-98); MEAN PLATELET VOLUME 8.7 FL (7.4-10.4); MONOCYTES # (AUTO) 0.1 X10'3 (0-0.9); MONOCYTES % (AUTO) 1.1 % (2-12); NEUTROPHILS # (AUTO) 9.1 X10'3 (1.8-7.7); NEUTROPHILS % (AUTO) 90.9 % (42-75); PLATELET COUNT 192 X10'3 (140-440); RED BLOOD COUNT 3.69 X10'6 (4.20-5.60); RED CELL DISTRIBUTION WIDTH 24.3 % (11.5-14.5)
[2017-06-18 04:22] LABS: INR 1.4 INR; PROTHROMBIN TIME 14.7 SECONDS (9.0-12.0)
[2017-06-18] MEDS: K and/or MAG REPLACEMENT MC SCH (08:00)
[2017-06-18] MEDS ORDERED: levoFLOXACIN-Levaquin 750MG/D5 150 ML IV SCH (08:00)
[2017-06-18] MEDS: insulin Lispro (HumaLOG) vial - multi-dose SQ SCH ×4 (08:18→20:58)
[2017-06-18] MEDS: heparin, porcine 5000 units/ml vial SQ SCH ×2 (08:29→20:52)
[2017-06-18] MEDS: pantoprazole 40 MG vial IV SCH (08:29)
[2017-06-18] MEDS: azithromycin/NS 500mg/250ml 250 ML IV SCH (08:42)
[2017-06-18] MEDS: spironolactone 25 MG tablet PO SCH (08:42)
[2017-06-18] MEDS: lactobacillus rhamnosus 10,000 MMU CELLS/CAPSULE PO SCH ×2 (17:09→17:39)
[2017-06-18] MEDS ORDERED: nitroGLYCERIN-Tridil 50MG/D5W 250 ML IV PRN (20:10)
[2017-06-18] MEDS: furosemide 40mg/4ml inj IV SCH (20:52)
[2017-06-18] MEDS: gabapentin 300mg capsule PO SCH (20:52)
[2017-06-18] MEDS: insulin glargine (Lantus) pen - multi-dose SQ SCH (20:58)
[2017-06-19] VITALS (15 sets, daily range): BP systolic 96–153; BP diastolic 66–85
[2017-06-19] MEDS: ipratropium/albuterol 3ml nebule NEB SCH ×6 (02:32→22:53)
[2017-06-19] MEDS: HYDROcodone/acetaminophen 5mg/325mg tablet PO PRN ×2 (04:59→09:24)
[2017-06-19] MEDS ORDERED: pantoprazole 40mg Tablet.DR PO SCH (07:30)
[2017-06-19 07:31] LABS: BASOPHILS % (AUTO) 0.1 % (0-1); EOSINOPHILS # (AUTO) 0.1 X10'3 (0-0.9); EOSINOPHILS % (AUTO) 0.8 % (0-6); HEMOGLOBIN 8.9 g/dl (12.0-16.0); LYMPHOCYTES # (AUTO) 0.7 X10'3 (1.1-4.8); LYMPHOCYTES % (AUTO) 6.3 % (21-51); MEAN CORPUSCULAR HEMOGLOBIN 24.5 PG (27.0-31.0); MEAN CORPUSCULAR HGB CONC 31.8 % (33.0-36.5); MEAN CORPUSCULAR VOLUME 77.1 FL (78-98); MEAN PLATELET VOLUME 8.3 FL (7.4-10.4); MONOCYTES # (AUTO) 1.1 X10'3 (0-0.9); MONOCYTES % (AUTO) 9.1 % (2-12); NEUTROPHILS % (AUTO) 83.7 % (42-75); PLATELET COUNT 232 X10'3 (140-440); RED BLOOD COUNT 3.63 X10'6 (4.20-5.60); RED CELL DISTRIBUTION WIDTH 24.1 % (11.5-14.5); WHITE BLOOD COUNT 11.9 X10'3 (4.5-11.0)
[2017-06-19 07:39] LABS: INR 1.2 INR; PROTHROMBIN TIME 12.1 SECONDS (9.0-12.0)
[2017-06-19 07:49] LABS: ALANINE AMINOTRANSFERASE 14 U/L (12-78); ALBUMIN 2.5 G/DL (3.4-5.0); ALBUMIN/GLOBULIN RATIO 0.7 (1.1-1.5); ALKALINE PHOSPHATASE 64 IU/L (46-116); ANION GAP 3 (8-16); ASPARTATE AMINO TRANSFERASE 14 U/L (10-37); BILIRUBIN,TOTAL 0.9 MG/DL (0.1-1.0); BLOOD UREA NITROGEN 22 MG/DL (7-18); BUN/CREATININE RATIO 17.2 (6.6-38.0); CALCIUM 9.4 MG/DL (8.5-10.1); CHLORIDE 99 MMOL/L (99-107); CREATININE 1.28 MG/DL (0.40-0.90); GLUCOSE 133 MG/DL (70-104); MAGNESIUM 1.8 MG/DL (1.5-2.4); POTASSIUM 3.1 MMOL/L (3.5-5.1); SODIUM 141 MMOL/L (135-145); TOTAL CARBON DIOXIDE 39.3 MMOL/L (24-32); TOTAL PROTEIN 6.1 G/DL (6.4-8.2); eGFR 40 ML/MIN
[2017-06-19] MEDS: insulin Lispro (HumaLOG) vial - multi-dose SQ SCH ×2 (07:51→13:51)
[2017-06-19] MEDS: furosemide 40mg/4ml inj IV SCH ×2 (07:54→19:13)
[2017-06-19] MEDS: atorvastatin 20mg tablet PO SCH (07:55)
[2017-06-19] MEDS: duloxetine 30mg CAPSULE.DR PO SCH (07:55)
[2017-06-19] MEDS: metoprolol succinate 25mg (24-HOUR) SR. Tablet PO SCH (07:57)
[2017-06-19] MEDS: potassium chloride 10mEq ER tablet PO SCH (07:57)
[2017-06-19] MEDS: gabapentin 300mg capsule PO SCH ×3 (07:58→20:43)
[2017-06-19] MEDS: lactobacillus rhamnosus 10,000 MMU CELLS/CAPSULE PO SCH ×2 (07:58→17:35)
[2017-06-19] MEDS: montelukast 10mg tablet PO SCH (07:59)
[2017-06-19] MEDS: metolazone 2.5mg tablet PO SCH (07:59)
[2017-06-19] MEDS: aspirin 81mg tablet.DR PO SCH (07:59)
[2017-06-19] MEDS: spironolactone 25 MG tablet PO SCH (07:59)
[2017-06-19] MEDS: pantoprazole 40mg Tablet.DR PO SCH (07:59)
[2017-06-19] MEDS ORDERED: atorvastatin 20mg tablet PO SCH (08:00)
[2017-06-19] MEDS: K and/or MAG REPLACEMENT MC SCH (08:00)
[2017-06-19] MEDS: heparin, porcine 5000 units/ml vial SQ SCH ×2 (08:00→19:13)
[2017-06-19] MEDS: azithromycin/NS 500mg/250ml 250 ML IV SCH (08:09)
[2017-06-19] MEDS: potassium Cl 20 mEq SR tablet PO PRN ×3 (09:25→17:35)
[2017-06-19] MEDS: nitroGLYCERIN-Tridil 50MG/D5W 250 ML IV SCH (11:31)
[2017-06-19] MEDS: insulin glargine (Lantus) pen - multi-dose SQ SCH (20:50)
[2017-06-20] VITALS (14 sets, daily range): BP systolic 105–167; BP diastolic 50–99
[2017-06-20] MEDS: temazepam 15mg capsule PO PRN ×2 (00:12→21:04)
[2017-06-20] MEDS: ipratropium/albuterol 3ml nebule NEB SCH ×6 (03:08→23:19)
[2017-06-20] MEDS: nitroGLYCERIN-Tridil 50MG/D5W 250 ML IV SCH (05:09)
[2017-06-20 06:44] LABS: BASOPHILS % (AUTO) 0.3 % (0-1); EOSINOPHILS # (AUTO) 0.2 X10'3 (0-0.9); EOSINOPHILS % (AUTO) 2.5 % (0-6); HEMATOCRIT 30.7 % (35.0-45.0); HEMOGLOBIN 9.7 g/dl (12.0-16.0); LYMPHOCYTES # (AUTO) 0.9 X10'3 (1.1-4.8); LYMPHOCYTES % (AUTO) 9.7 % (21-51); MEAN CORPUSCULAR HEMOGLOBIN 24.3 PG (27.0-31.0); MEAN CORPUSCULAR HGB CONC 31.5 % (33.0-36.5); MEAN CORPUSCULAR VOLUME 77.1 FL (78-98); MEAN PLATELET VOLUME 8.4 FL (7.4-10.4); MONOCYTES # (AUTO) 0.8 X10'3 (0-0.9); MONOCYTES % (AUTO) 8.6 % (2-12); NEUTROPHILS # (AUTO) 7.6 X10'3 (1.8-7.7); NEUTROPHILS % (AUTO) 78.9 % (42-75); PLATELET COUNT 263 X10'3 (140-440); RED BLOOD COUNT 3.98 X10'6 (4.20-5.60); WHITE BLOOD COUNT 9.6 X10'3 (4.5-11.0)
[2017-06-20 06:53] LABS: INR 1.1 INR; PROTHROMBIN TIME 11.6 SECONDS (9.0-12.0)
[2017-06-20 06:58] LABS: MAGNESIUM 1.7 MG/DL (1.5-2.4)
[2017-06-20 07:03] LABS: POTASSIUM 3.5 MMOL/L (3.5-5.1)
[2017-06-20] MEDS: azithromycin/NS 500mg/250ml 250 ML IV SCH (07:49)
[2017-06-20] MEDS: potassium chloride 10mEq ER tablet PO SCH (07:50)
[2017-06-20] MEDS: metoprolol succinate 25mg (24-HOUR) SR. Tablet PO SCH (07:50)
[2017-06-20] MEDS: pantoprazole 40mg Tablet.DR PO SCH (07:51)
[2017-06-20] MEDS: aspirin 81mg tablet.DR PO SCH (07:51)
[2017-06-20] MEDS: spironolactone 25 MG tablet PO SCH (07:51)
[2017-06-20] MEDS: duloxetine 30mg CAPSULE.DR PO SCH (07:51)
[2017-06-20] MEDS: gabapentin 300mg capsule PO SCH ×3 (07:51→20:54)
[2017-06-20] MEDS: montelukast 10mg tablet PO SCH (07:51)
[2017-06-20] MEDS: atorvastatin 20mg tablet PO SCH (07:51)
[2017-06-20] MEDS: furosemide 40mg/4ml inj IV SCH ×2 (07:52→20:54)
[2017-06-20] MEDS: lactobacillus rhamnosus 10,000 MMU CELLS/CAPSULE PO SCH ×2 (07:53→17:26)
[2017-06-20] MEDS: heparin, porcine 5000 units/ml vial SQ SCH ×2 (07:54→20:55)
[2017-06-20] MEDS ORDERED: levoFLOXACIN-Levaquin 750MG/D5 150 ML IV SCH (08:00)
[2017-06-20] MEDS: K and/or MAG REPLACEMENT MC SCH (08:00)
[2017-06-20] MEDS: metolazone 2.5mg tablet PO SCH (08:21)
[2017-06-20] MEDS: insulin Lispro (HumaLOG) vial - multi-dose SQ SCH ×3 (09:14→18:59)
[2017-06-20] MEDS: HYDROcodone/acetaminophen 5mg/325mg tablet PO PRN (09:54)
[2017-06-20] MEDS: insulin glargine (Lantus) pen - multi-dose SQ SCH (21:00)
[2017-06-21] VITALS (10 sets, daily range): BP systolic 121–144; BP diastolic 55–83
[2017-06-21] MEDS: ipratropium/albuterol 3ml nebule NEB SCH ×4 (02:49→20:10)
[2017-06-21 05:56] LABS: BASOPHILS % (AUTO) 0.4 % (0-1); EOSINOPHILS # (AUTO) 0.4 X10'3 (0-0.9); EOSINOPHILS % (AUTO) 3.7 % (0-6); HEMATOCRIT 31.4 % (35.0-45.0); HEMOGLOBIN 10.1 g/dl (12.0-16.0); LYMPHOCYTES # (AUTO) 1.1 X10'3 (1.1-4.8); LYMPHOCYTES % (AUTO) 10.2 % (21-51); MEAN CORPUSCULAR HEMOGLOBIN 24.6 PG (27.0-31.0); MEAN CORPUSCULAR HGB CONC 32.1 % (33.0-36.5); MEAN CORPUSCULAR VOLUME 76.7 FL (78-98); MEAN PLATELET VOLUME 8.5 FL (7.4-10.4); MONOCYTES % (AUTO) 9.3 % (2-12); NEUTROPHILS # (AUTO) 8.4 X10'3 (1.8-7.7); NEUTROPHILS % (AUTO) 76.4 % (42-75); PLATELET COUNT 293 X10'3 (140-440); RED BLOOD COUNT 4.09 X10'6 (4.20-5.60); RED CELL DISTRIBUTION WIDTH 23.5 % (11.5-14.5)
[2017-06-21 06:02] LABS: INR 1.1 INR; PROTHROMBIN TIME 11.8 SECONDS (9.0-12.0)
[2017-06-21 06:14] LABS: ALANINE AMINOTRANSFERASE 14 U/L (12-78); ALBUMIN 2.4 G/DL (3.4-5.0); ALBUMIN/GLOBULIN RATIO 0.6 (1.1-1.5); ALKALINE PHOSPHATASE 67 IU/L (46-116); ANION GAP 4 (8-16); ASPARTATE AMINO TRANSFERASE 12 U/L (10-37); BILIRUBIN,TOTAL 1.2 MG/DL (0.1-1.0); BLOOD UREA NITROGEN 19 MG/DL (7-18); BUN/CREATININE RATIO 16.4 (6.6-38.0); CALCIUM 9.6 MG/DL (8.5-10.1); CHLORIDE 91 MMOL/L (99-107); CREATININE 1.16 MG/DL (0.40-0.90); GLUCOSE 156 MG/DL (70-104); MAGNESIUM 1.4 MG/DL (1.5-2.4); POTASSIUM 3.2 MMOL/L (3.5-5.1); SODIUM 134 MMOL/L (135-145); TOTAL CARBON DIOXIDE 39.1 MMOL/L (24-32); TOTAL PROTEIN 6.3 G/DL (6.4-8.2); eGFR 45 ML/MIN
[2017-06-21] MEDS ORDERED: magnesium 4gm in 100ml NS 100 ML IV PRN (06:45)
[2017-06-21] MEDS ORDERED: potassium Cl 20 mEq SR tablet PO PRN (06:45)
[2017-06-21] MEDS ORDERED: magnesium Cl slow-release 64mg tablet PO PRN (06:45)
[2017-06-21] MEDS ORDERED: potassium Cl 40MEQ/NS 500ml 500 ML IV PRN ×2 (06:45)
[2017-06-21] MEDS ORDERED: magnesium 2GM in 50ml NS 50 ML IV PRN (06:45)
[2017-06-21] MEDS: K and/or MAG REPLACEMENT MC SCH (08:00)
[2017-06-21] MEDS: heparin, porcine 5000 units/ml vial SQ SCH ×2 (08:27→19:07)
[2017-06-21] MEDS: furosemide 40mg/4ml inj IV SCH ×2 (08:27→19:05)
[2017-06-21] MEDS: gabapentin 300mg capsule PO SCH ×3 (08:28→21:58)
[2017-06-21] MEDS: spironolactone 25 MG tablet PO SCH (08:28)
[2017-06-21] MEDS: lactobacillus rhamnosus 10,000 MMU CELLS/CAPSULE PO SCH ×2 (08:28→17:31)
[2017-06-21] MEDS: metoprolol succinate 25mg (24-HOUR) SR. Tablet PO SCH (08:29)
[2017-06-21] MEDS: montelukast 10mg tablet PO SCH (08:29)
[2017-06-21] MEDS: pantoprazole 40mg Tablet.DR PO SCH (08:29)
[2017-06-21] MEDS: aspirin 81mg tablet.DR PO SCH (08:29)
[2017-06-21] MEDS: potassium chloride 10mEq ER tablet PO SCH (08:29)
[2017-06-21] MEDS: metolazone 2.5mg tablet PO SCH (08:30)
[2017-06-21] MEDS: atorvastatin 20mg tablet PO SCH (08:30)
[2017-06-21] MEDS: duloxetine 30mg CAPSULE.DR PO SCH (08:30)
[2017-06-21] MEDS: azithromycin/NS 500mg/250ml 250 ML IV SCH (08:30)
[2017-06-21] MEDS: insulin Lispro (HumaLOG) vial - multi-dose SQ SCH ×3 (08:55→22:03)
[2017-06-21] MEDS: predniSONE 20 mg tablet PO SCH (10:07)
[2017-06-21] MEDS: HYDROcodone/acetaminophen 10/325mg tab PO PRN ×2 (10:12→19:05)
[2017-06-21] MEDS: potassium Cl 20 mEq SR tablet PO PRN ×2 (12:25→16:14)
[2017-06-21] MEDS ORDERED: ipratropium/albuterol 3ml nebule ONE (13:58)
[2017-06-21] MEDS: insulin glargine (Lantus) pen - multi-dose SQ SCH (21:00)
[2017-06-21] MEDS: temazepam 15mg capsule PO PRN (23:37)
[2017-06-22] MEDS: ipratropium/albuterol 3ml nebule NEB SCH ×3 (02:21→14:17)
[2017-06-22 03:00] VITALS: BP 149/71
[2017-06-22 05:50] LABS: BASOPHILS # (AUTO) 0.1 X10'3 (0-0.2); BASOPHILS % (AUTO) 0.8 % (0-1); EOSINOPHILS # (AUTO) 0.1 X10'3 (0-0.9); EOSINOPHILS % (AUTO) 1.1 % (0-6); HEMATOCRIT 34.9 % (35.0-45.0); HEMOGLOBIN 11.1 g/dl (12.0-16.0); LYMPHOCYTES # (AUTO) 1.1 X10'3 (1.1-4.8); LYMPHOCYTES % (AUTO) 12.3 % (21-51); MEAN CORPUSCULAR HEMOGLOBIN 24.6 PG (27.0-31.0); MEAN CORPUSCULAR HGB CONC 31.9 % (33.0-36.5); MEAN CORPUSCULAR VOLUME 77.2 FL (78-98); MEAN PLATELET VOLUME 8.6 FL (7.4-10.4); MONOCYTES # (AUTO) 0.8 X10'3 (0-0.9); NEUTROPHILS # (AUTO) 6.9 X10'3 (1.8-7.7); NEUTROPHILS % (AUTO) 76.8 % (42-75); PLATELET COUNT 329 X10'3 (140-440); RED BLOOD COUNT 4.52 X10'6 (4.20-5.60); RED CELL DISTRIBUTION WIDTH 23.5 % (11.5-14.5)
[2017-06-22 05:58] LABS: INR 1.1 INR; PROTHROMBIN TIME 11.4 SECONDS (9.0-12.0)
[2017-06-22 06:00] VITALS: BP 150/64
[2017-06-22 06:00] LABS: MAGNESIUM 1.7 MG/DL (1.5-2.4); POTASSIUM 3.6 MMOL/L (3.5-5.1)
[2017-06-22] MEDS ORDERED: LACTOBACILLUS RHAMNOSUS GG 15 billion unit sprinkle caps PO SCH (07:30)
[2017-06-22] MEDS: montelukast 10mg tablet PO SCH (07:49)
[2017-06-22] MEDS: duloxetine 30mg CAPSULE.DR PO SCH (07:49)
[2017-06-22] MEDS: atorvastatin 20mg tablet PO SCH (07:49)
[2017-06-22] MEDS: metoprolol succinate 25mg (24-HOUR) SR. Tablet PO SCH (07:49)
[2017-06-22] MEDS: metolazone 2.5mg tablet PO SCH (07:49)
[2017-06-22] MEDS: gabapentin 300mg capsule PO SCH ×2 (07:49→13:45)
[2017-06-22] MEDS: pantoprazole 40mg Tablet.DR PO SCH (07:50)
[2017-06-22] MEDS: predniSONE 20 mg tablet PO SCH (07:50)
[2017-06-22] MEDS: aspirin 81mg tablet.DR PO SCH (07:50)
[2017-06-22] MEDS: lactobacillus rhamnosus 10,000 MMU CELLS/CAPSULE PO SCH (07:50)
[2017-06-22] MEDS: spironolactone 25 MG tablet PO SCH (07:50)
[2017-06-22] MEDS: furosemide 40mg/4ml inj IV SCH (07:51)
[2017-06-22] MEDS: heparin, porcine 5000 units/ml vial SQ SCH (07:51)
[2017-06-22] MEDS ORDERED: azithromycin 250mg tablet PO SCH (08:00)
[2017-06-22] MEDS: K and/or MAG REPLACEMENT MC SCH (08:27)
[2017-06-22] MEDS: potassium chloride 10mEq ER tablet PO SCH (08:32)
[2017-06-22] MEDS: insulin Lispro (HumaLOG) vial - multi-dose SQ SCH ×2 (08:51→13:49)
[2017-06-22 11:00] VITALS: BP 145/70
[2017-06-22 15:00] VITALS: BP 137/51
== END 2017-06-22 17:39 | DRG 871 ==
LOC: ER 15:41 → ED HOLD 18:02 → PCU 3S 19:40
PROVIDERS: ADMIT Family Medicine; ATTEND Internal Medicine
DX: A41.9 Sepsis, unspecified organism (principal); I50.23 Acute on chronic systolic (congestive) heart failure; J96.00 Acute respiratory failure, unspecified whether with hypoxia or hypercapnia; J18.9 Pneumonia, unspecified organism; I13.0 Hypertensive heart and chronic kidney disease with heart failure and stage 1 through stage 4 chronic kidney disease, or unspecified chronic kidney disease; E11.22 Type 2 diabetes mellitus with diabetic chronic kidney disease; J44.0 Chronic obstructive pulmonary disease with (acute) lower respiratory infection; J44.1 Chronic obstructive pulmonary disease with (acute) exacerbation; N18.9 Chronic kidney disease, unspecified; Z60.2 Problems related to living alone; Z90.49 Acquired absence of other specified parts of digestive tract; Z88.6 Allergy status to analgesic agent; Z79.899 Other long term (current) drug therapy; Z79.01 Long term (current) use of anticoagulants; Z79.82 Long term (current) use of aspirin; Z86.73 Personal history of transient ischemic attack (TIA), and cerebral infarction without residual deficits
CPT/HCPCS: 36415; 36600; 71045; 80053; 82803; 82948; 83605; 83735; 83880; 84132; 84484; 85018; 85025; 85610; 85730; 87040; 87070; 87502; 87503; 93005; 93971; 94640; 94760; 96365; 96375; 97110; 97162; 97530; 99285; C9113; J0456; J1644; J1815; J1940; J1956; J2930; J3105; J3475; J3490; J7030; J7040; J7512

== ENCOUNTER 2017-06-25 05:25 | Inpatient (IN) | payer MEDICARE, OTHER ==
[~2017-06-25] VITALS: Ht 175.3 cm; Wt 87.5 kg
[2017-06-25] VITALS (14 sets, daily range): BP systolic 66–140; BP diastolic 35–63
[~2017-06-25 05:25] MED LIST changes: -ENOX40SY7 SUBCUT; -FURO80TA3 PO; -HYDR-569 PO; -INSU100C4 SQ; -LANTUS SQ
[2017-06-25] MEDS ORDERED: acetaminophen 650mg rectal suppository RC STA (05:29)
[2017-06-25] MEDS ORDERED: normal saline 1000ML IV soln IV ONE (05:30)
[2017-06-25] MEDS ORDERED: ipratropium/albuterol 3ml nebule NEB ONE (05:30)
[2017-06-25] MEDS ORDERED: levoFLOXACIN-Levaquin 750MG/D5 150 ML IV ONE (05:30)
[2017-06-25] MEDS ORDERED: furosemide 10 MG/1 ML 10ml inj IV ONE (06:00)
[2017-06-25 06:06] LABS: ABG BASE EXCESS 6.8 mmol/L (-2.0-3.0); ABG HCO3 31.8 mmol/L (22.0-26.0); ABG PH (T) 7.394 (7.350-7.450); ABG PO2 (T) 69.2 mmHg (83-108); FCOHb 1.3 % (0.5-1.5); FMetHb 0.2 % (0.3-1.12); FO2Hb 87.7 % (94-100); MINUTE VOLUME 13 L/min; PATIENT TEMPERATURE 40.4; RESPIRATORY RATE 12 b/min; RESPIRATORY RATE (OBSERVED) 24 b/min; TOTAL HEMOGLOBIN 12.2 G/dl (12.0-16.0)
[2017-06-25 06:15] LABS: CLARITY,URINE CLEAR (Clear); COLOR,URINE YELLOW (Yellow); GLUCOSE, URINE NEGATIVE (Neg); KETONES,URINE NEGATIVE (Neg); LEUKOCYTE ESTERASE ,URINE NEGATIVE (Neg); NITRITES, URINE NEGATIVE (Neg); OCCULT BLOOD,URINE SMALL (Neg); PROTEIN,URINE TRACE mg/dl (Neg); UROBILINOGEN,URINE 0.2 E.U/dL (0.2-1.0)
[2017-06-25] MEDS ORDERED: cefepime 1GM/NS ADD-VANTAGE 100 ML IV ONE (06:15)
[2017-06-25 06:16] LABS: BASOPHILS % (AUTO) 0.1 % (0-1); EOSINOPHILS % (AUTO) 0 % (0-6); HEMATOCRIT 40.2 % (35.0-45.0); HEMOGLOBIN 12.8 g/dl (12.0-16.0); LYMPHOCYTES # (AUTO) 0.8 X10'3 (1.1-4.8); LYMPHOCYTES % (AUTO) 2.2 % (21-51); MEAN CORPUSCULAR HEMOGLOBIN 24.4 PG (27.0-31.0); MEAN CORPUSCULAR HGB CONC 31.8 % (33.0-36.5); MEAN CORPUSCULAR VOLUME 76.9 FL (78-98); MEAN PLATELET VOLUME 8.4 FL (7.4-10.4); MONOCYTES # (AUTO) 1.1 X10'3 (0-0.9); MONOCYTES % (AUTO) 3.1 % (2-12); NEUTROPHILS # (AUTO) 34.8 X10'3 (1.8-7.7); NEUTROPHILS % (AUTO) 94.6 % (42-75); PLATELET COUNT 457 X10'3 (140-440); RED BLOOD COUNT 5.23 X10'6 (4.20-5.60); RED CELL DISTRIBUTION WIDTH 22.4 % (11.5-14.5)
[2017-06-25 06:25] LABS: UA COLLECTION TYPE FOLEY CATH
[2017-06-25 06:26] LABS: BACTERIA,URINE FEW /HPF (Neg); RBC,URINE 0-2 /HPF (0-2); SQUAMOUS EPITHELIAL CELL,UR FEW /LPF (FEW); WBC,URINE 0-4 /HPF (0-4)
[2017-06-25 06:26] LABS: ALANINE AMINOTRANSFERASE 11 U/L (12-78); ALBUMIN 2.9 G/DL (3.4-5.0); ALBUMIN/GLOBULIN RATIO 0.6 (1.1-1.5); ALKALINE PHOSPHATASE 81 IU/L (46-116); ANION GAP 8 (8-16); ASPARTATE AMINO TRANSFERASE 14 U/L (10-37); BILIRUBIN,TOTAL 0.8 MG/DL (0.1-1.0); BLOOD UREA NITROGEN 26 MG/DL (7-18); CALCIUM 10.5 MG/DL (8.5-10.1); CHLORIDE 94 MMOL/L (99-107); CREATININE 1.18 MG/DL (0.40-0.90); GLUCOSE 220 MG/DL (70-104); MAGNESIUM 1.2 MG/DL (1.5-2.4); POTASSIUM 3.6 MMOL/L (3.5-5.1); SODIUM 139 MMOL/L (135-145); TOTAL CARBON DIOXIDE 36.8 MMOL/L (24-32); TOTAL PROTEIN 7.4 G/DL (6.4-8.2); eGFR 44 ML/MIN
[2017-06-25 06:27] LABS: COARSE GRANULAR CAST 0-3 /LPF (NEGATIVE)
[2017-06-25 06:27] LABS: WHITE BLOOD COUNT 36.7 X10'3 (4.5-11.0)
[2017-06-25 06:36] LABS: D-DIMER 5.73 MG/L FEU (0-0.50); INR 1.1 INR; PARTIAL THROMBOPLASTIN TIME 24 SECONDS (22-32); PROTHROMBIN TIME 11.2 SECONDS (9.0-12.0)
[2017-06-25 07:15] LABS: NUCLEATED RED BLOOD CELLS 1 /100WBC (0-0); TOTAL CELLS COUNTED 100
[2017-06-25 07:17] LABS: ANISOCYTOSIS 3+; HYPOCHROMASIA 1+; MICROCYTOSIS 1+; PLATELET ESTIMATE INCREASED; SCHISTOCYTES FEW; SPHEROCYTES FEW; TARGET CELLS FEW
[2017-06-25 07:18] LABS: POLYCHROMASIA 1+; STOMATOCYTES 1+
[2017-06-25 07:19] LABS: LARGE PLATELETS FEW
[2017-06-25] MEDS ORDERED: iohexol 350MG/ML 100ml bottle IV ONE (07:52)
[2017-06-25] MEDS ORDERED: normal saline 1000ML IV soln IVB ONE (08:45)
[2017-06-25] MEDS ORDERED: magnesium hydroxide 30ml (MOM) UD suspension PO PRN (10:00)
[2017-06-25] MEDS ORDERED: magnesium 2GM in 50ml NS 50 ML IV PRN (10:00)
[2017-06-25] MEDS ORDERED: mag hydrox/Alum hydrox/simeth 30ml oral suspension PO PRN (10:00)
[2017-06-25] MEDS ORDERED: magnesium Cl slow-release 64mg tablet PO PRN (10:00)
[2017-06-25] MEDS ORDERED: albuterol 2.5 MG/3 ML nebule NEB PRN (10:00)
[2017-06-25] MEDS ORDERED: potassium Cl 40MEQ/NS 500ml 500 ML IV PRN ×2 (10:00)
[2017-06-25] MEDS ORDERED: ondansetron/PF 4mg/2ml inj IV PRN (10:00)
[2017-06-25] MEDS ORDERED: potassium Cl 20 mEq SR tablet PO PRN ×2 (10:00)
[2017-06-25] MEDS ORDERED: acetaminophen 325mg tablet PO PRN (10:00)
[2017-06-25] MEDS ORDERED: magnesium 4gm in 100ml NS 100 ML IV PRN (10:00)
[2017-06-25] MEDS ORDERED: MESSAGE TO PHARMACY PO ONE (10:20)
[2017-06-25] MEDS ORDERED: dextrose 50%-water 50ml dispensing syringe IV PRN ×2 (10:20)
[2017-06-25] MEDS ORDERED: dextrose ORAL solution 15 GM/59 ML bottle PO PRN ×2 (10:20)
[2017-06-25] MEDS ORDERED: glucagon, human recombinant 1mg kit SUBCUT PRN (10:20)
[2017-06-25] MEDS: normal saline 1000ml 1,000 ML IV SCH ×2 (10:39→13:51)
[2017-06-25] MEDS ORDERED: metoprolol tartrate 1mg/ml inj IV PRN (10:45)
[2017-06-25] MEDS ORDERED: APIX5TAB3 PO (13:26)
[2017-06-25] MEDS ORDERED: FURO-149 PO (13:26)
[2017-06-25] MEDS ORDERED: PRED20TA PO (13:26)
[2017-06-25] MEDS ORDERED: OMEP20TA5 PO (13:26)
[2017-06-25] MEDS ORDERED: IPRA3AMP IH ×2 (13:26)
[2017-06-25] MEDS ORDERED: AZIT-63 PO (13:26)
[2017-06-25] MEDS ORDERED: HYDR-565 PO (13:26)
[2017-06-25] MEDS ORDERED: LISI-604 PO (13:26)
[2017-06-25] MEDS ORDERED: INSU100V9 SQ (13:26)
[2017-06-25] MEDS ORDERED: INSU100C4 SQ (13:26)
[2017-06-25 13:48] LABS: HEMOGLOBIN A1C 7.2 % (4.5-6.2)
[2017-06-25] MEDS: methylPREDNISolone sod succ 125mg/2ml vial IV SCH ×3 (13:51→20:10)
[2017-06-25] MEDS ORDERED: ipratropium 0.5 MG/2.5ML nebule IH SCH (14:00)
[2017-06-25] MEDS ORDERED: NORepinephrine 8mg/ 250ml NS 250 ML IV SCH (14:15)
[2017-06-25] MEDS: piperacillin/tazo 3.375gm/50ml 50 ML IV SCH ×2 (14:36→19:54)
[2017-06-25] MEDS: insulin Lispro (HumaLOG) vial - multi-dose SQ SCH ×2 (14:54→19:59)
[2017-06-25] MEDS ORDERED: albuterol 2.5 MG/3 ML nebule NEB SCH (15:00)
[2017-06-25] MEDS: ipratropium/albuterol 3ml nebule IH SCH ×2 (15:14→21:05)
[2017-06-25 15:25] LABS: OXYGEN SATURATION (MIXED VEN) 76.6 % (60-80); PO2 MIXED VENOUS (TEMP COR) 42.4 mmHg (35-46)
[2017-06-25 16:26] LABS: ABG BASE EXCESS 6.8 mmol/L (-2.0-3.0); ABG HCO3 32.9 mmol/L (22.0-26.0); ABG OXYGEN SATURATION 94.9 % (95-98); ABG PCO2 (T) 53.8 mmHg (32.0-45.0); ABG PH (T) 7.404 (7.350-7.450); ABG PO2 (T) 73.5 mmHg (83-108); ALLEN'S TEST Positive; FCOHb 0.4 % (0.5-1.5); FMetHb 0.1 % (0.3-1.12); FO2Hb 94.4 % (94-100); MINUTE VOLUME 10 L/min; RESPIRATORY RATE 12 b/min; TOTAL HEMOGLOBIN 11.8 G/dl (12.0-16.0)
[2017-06-25] MEDS: heparin, porcine 5000 units/ml vial SQ SCH (17:17)
[2017-06-25] MEDS ORDERED: pantoprazole 40 MG vial IV ONE (20:00)
[2017-06-25] MEDS ORDERED: vancomycin inj. 750 MG in normal saline 250ml IV soln 250 ML IV SCH (20:00)
[2017-06-25] MEDS: insulin glargine (Lantus) pen - multi-dose SQ SCH (21:04)
[2017-06-26] VITALS (23 sets, daily range): BP systolic 97–156; BP diastolic 48–88
[2017-06-26] MEDS: normal saline 1000ml 1,000 ML IV SCH (00:11)
[2017-06-26] MEDS: heparin, porcine 5000 units/ml vial SQ SCH ×4 (00:12→23:52)
[2017-06-26] MEDS: ipratropium/albuterol 3ml nebule IH SCH ×4 (03:28→19:56)
[2017-06-26 03:36] LABS: BASOPHILS % (AUTO) 0 % (0-1); EOSINOPHILS # (AUTO) 0.5 X10'3 (0-0.9); EOSINOPHILS % (AUTO) 1.1 % (0-6); HEMATOCRIT 34.5 % (35.0-45.0); HEMOGLOBIN 10.9 g/dl (12.0-16.0); LYMPHOCYTES # (AUTO) 0.8 X10'3 (1.1-4.8); LYMPHOCYTES % (AUTO) 1.5 % (21-51); MEAN CORPUSCULAR HEMOGLOBIN 24.7 PG (27.0-31.0); MEAN CORPUSCULAR HGB CONC 31.6 % (33.0-36.5); MEAN CORPUSCULAR VOLUME 78.1 FL (78-98); MEAN PLATELET VOLUME 8.1 FL (7.4-10.4); MONOCYTES # (AUTO) 0.5 X10'3 (0-0.9); NEUTROPHILS # (AUTO) 49.2 X10'3 (1.8-7.7); NEUTROPHILS % (AUTO) 96.4 % (42-75); PLATELET COUNT 374 X10'3 (140-440); RED BLOOD COUNT 4.41 X10'6 (4.20-5.60); RED CELL DISTRIBUTION WIDTH 23.2 % (11.5-14.5)
[2017-06-26 03:41] LABS: WHITE BLOOD COUNT 51.1 X10'3 (4.5-11.0)
[2017-06-26 03:53] LABS: ALANINE AMINOTRANSFERASE 13 U/L (12-78); ALBUMIN/GLOBULIN RATIO 0.5 (1.1-1.5); ALKALINE PHOSPHATASE 62 IU/L (46-116); ANION GAP 8 (8-16); ASPARTATE AMINO TRANSFERASE 10 U/L (10-37); BILIRUBIN,TOTAL 0.8 MG/DL (0.1-1.0); BLOOD UREA NITROGEN 28 MG/DL (7-18); BUN/CREATININE RATIO 21.7 (6.6-38.0); CALCIUM 8.9 MG/DL (8.5-10.1); CHLORIDE 102 MMOL/L (99-107); CREATININE 1.29 MG/DL (0.40-0.90); GLUCOSE 269 MG/DL (70-104); MAGNESIUM 1.3 MG/DL (1.5-2.4); PHOSPHORUS 2.6 MG/DL (2.3-4.5); POTASSIUM 3.1 MMOL/L (3.5-5.1); SODIUM 143 MMOL/L (135-145); TOTAL PROTEIN 5.9 G/DL (6.4-8.2); eGFR 40 ML/MIN
[2017-06-26 04:03] LABS: ANISOCYTOSIS 3+; PLATELET ESTIMATE NORMAL; TOTAL CELLS COUNTED 100
[2017-06-26 04:04] LABS: ELLIPTOCYTES FEW; HYPOCHROMASIA 1+; SCHISTOCYTES FEW; SPHEROCYTES FEW
[2017-06-26 04:05] LABS: POLYCHROMASIA FEW
[2017-06-26] MEDS ORDERED: potassium Cl 40MEQ/250ML bag 250 ML IV PRN (04:20)
[2017-06-26] MEDS: piperacillin/tazo 3.375gm/50ml 50 ML IV SCH ×4 (04:24→19:54)
[2017-06-26] MEDS: methylPREDNISolone sod succ 125mg/2ml vial IV SCH (04:24)
[2017-06-26] MEDS: insulin Lispro (HumaLOG) vial - multi-dose SQ SCH ×2 (04:32→09:45)
[2017-06-26] MEDS ORDERED: potassium Cl 40MEQ/250ML bag 250 ML IV ONE (04:45)
[2017-06-26] MEDS: potassium Cl 40MEQ/250ML bag 250 ML IV PRN (05:19)
[2017-06-26] MEDS: K and/or MAG REPLACEMENT MC SCH (08:00)
[2017-06-26] MEDS: vancomycin inj 1,250 MG in normal saline 250ml IV soln 250 ML IV SCH (11:25)
[2017-06-26] MEDS ORDERED: ipratropium/albuterol 3ml nebule IH PRN (11:40)
[2017-06-26] MEDS ORDERED: ipratropium/albuterol 3ml nebule IH SCH (12:00)
[2017-06-26] MEDS: methylPREDNISolone sod succ/PF 40mg inj. IV SCH ×2 (15:32→19:56)
[2017-06-26] MEDS: gabapentin 300mg capsule PO SCH ×2 (16:08→23:52)
[2017-06-26] MEDS: insulin regular, human vial - multi-dose SQ SCH ×2 (16:15→20:13)
[2017-06-26 16:54] LABS: MAGNESIUM 3.7 MG/DL (1.5-2.4); POTASSIUM 3.2 MMOL/L (3.5-5.1)
[2017-06-26] MEDS ORDERED: potassium Cl oral solution 20 MEQ/15 ML PO PRN (18:23)
[2017-06-26] MEDS: potassium Cl oral solution 20 MEQ/15 ML PO PRN ×2 (19:56→23:52)
[2017-06-26] MEDS: insulin glargine (Lantus) pen - multi-dose SQ SCH (20:14)
[2017-06-26] MEDS: apixaban 5mg tablet PO SCH (20:31)
[2017-06-27] VITALS (24 sets, daily range): BP systolic 114–172; BP diastolic 47–98
[2017-06-27] MEDS: methylPREDNISolone sod succ/PF 40mg inj. IV SCH ×4 (01:48→21:32)
[2017-06-27] MEDS: piperacillin/tazo 3.375gm/50ml 50 ML IV SCH ×4 (01:48→21:31)
[2017-06-27] MEDS: insulin regular, human vial - multi-dose SQ SCH ×4 (01:54→21:43)
[2017-06-27] MEDS ORDERED: HYDROcodone/acetaminophen 5mg/325mg tablet PO PRN (02:30)
[2017-06-27] MEDS: ipratropium/albuterol 3ml nebule IH SCH ×4 (03:02→20:18)
[2017-06-27] MEDS: potassium Cl oral solution 20 MEQ/15 ML PO PRN (03:44)
[2017-06-27] MEDS ORDERED: HYDROcodone/acetaminophen 5mg/325mg tablet PO ONE (04:50)
[2017-06-27] MEDS: hydrALAZINE 20mg/ml inj. IV PRN (05:00)
[2017-06-27 05:39] LABS: BASOPHILS % (AUTO) 0 % (0-1); EOSINOPHILS # (AUTO) 0.5 X10'3 (0-0.9); HEMATOCRIT 32.2 % (35.0-45.0); HEMOGLOBIN 10.4 g/dl (12.0-16.0); LYMPHOCYTES # (AUTO) 0.6 X10'3 (1.1-4.8); LYMPHOCYTES % (AUTO) 2.3 % (21-51); MEAN CORPUSCULAR HEMOGLOBIN 24.6 PG (27.0-31.0); MEAN CORPUSCULAR HGB CONC 32.3 % (33.0-36.5); MEAN CORPUSCULAR VOLUME 76.1 FL (78-98); MEAN PLATELET VOLUME 8.2 FL (7.4-10.4); MONOCYTES # (AUTO) 0.4 X10'3 (0-0.9); MONOCYTES % (AUTO) 1.6 % (2-12); NEUTROPHILS # (AUTO) 24.1 X10'3 (1.8-7.7); NEUTROPHILS % (AUTO) 94.1 % (42-75); PLATELET COUNT 287 X10'3 (140-440); RED BLOOD COUNT 4.23 X10'6 (4.20-5.60); RED CELL DISTRIBUTION WIDTH 23.8 % (11.5-14.5)
[2017-06-27 05:44] LABS: WHITE BLOOD COUNT 25.6 X10'3 (4.5-11.0)
[2017-06-27 05:53] LABS: CHLORIDE 105 MMOL/L (99-107); GLUCOSE 238 MG/DL (70-104); POTASSIUM 3.6 MMOL/L (3.5-5.1); SODIUM 145 MMOL/L (135-145); TOTAL CARBON DIOXIDE 33.3 MMOL/L (24-32)
[2017-06-27 05:54] LABS: ALANINE AMINOTRANSFERASE 9 U/L (12-78); ALBUMIN 2.2 G/DL (3.4-5.0); ALBUMIN/GLOBULIN RATIO 0.5 (1.1-1.5); ALKALINE PHOSPHATASE 64 IU/L (46-116); ANION GAP 7 (8-16); ASPARTATE AMINO TRANSFERASE 12 U/L (10-37); BILIRUBIN,TOTAL 0.7 MG/DL (0.1-1.0); BLOOD UREA NITROGEN 34 MG/DL (7-18); BUN/CREATININE RATIO 25.8 (6.6-38.0); CREATININE 1.32 MG/DL (0.40-0.90); MAGNESIUM 2.9 MG/DL (1.5-2.4); PHOSPHORUS 2.9 MG/DL (2.3-4.5); TOTAL PROTEIN 6.4 G/DL (6.4-8.2); eGFR 39 ML/MIN
[2017-06-27 07:20] LABS: NUCLEATED RED BLOOD CELLS 1 /100WBC (0-0); TOTAL CELLS COUNTED 100
[2017-06-27 07:21] LABS: ANISOCYTOSIS 3+; HYPOCHROMASIA 1+; PLATELET ESTIMATE NORMAL; POIKILOCYTOSIS 1+; POLYCHROMASIA 1+
[2017-06-27 07:22] LABS: LARGE PLATELETS FEW; ROULEAUX 1+; TOXIC GRANULATION 1+
[2017-06-27] MEDS ORDERED: metoprolol succinate 25mg (24-HOUR) SR. Tablet PO SCH (08:00)
[2017-06-27] MEDS: K and/or MAG REPLACEMENT MC SCH (08:00)
[2017-06-27] MEDS ORDERED: duloxetine 30mg CAPSULE.DR PO SCH ×2 (08:00→11:14)
[2017-06-27] MEDS: gabapentin 300mg capsule PO SCH ×2 (08:52→16:15)
[2017-06-27] MEDS: potassium Cl oral solution 20 MEQ/15 ML PO SCH (08:52)
[2017-06-27] MEDS: lisinopril 5mg tablet PO SCH (08:52)
[2017-06-27] MEDS: pregabalin 75mg capsule PO SCH (08:52)
[2017-06-27] MEDS: atorvastatin 20mg tablet PO SCH (08:53)
[2017-06-27] MEDS: furosemide 40mg tablet PO SCH (08:53)
[2017-06-27] MEDS: montelukast 10mg tablet PO SCH (08:53)
[2017-06-27] MEDS: heparin, porcine 5000 units/ml vial SQ SCH ×2 (08:54→16:15)
[2017-06-27] MEDS: metolazone 2.5mg tablet PO SCH (09:13)
[2017-06-27] MEDS: vancomycin inj 1,250 MG in normal saline 250ml IV soln 250 ML IV SCH (11:16)
[2017-06-27] MEDS: apixaban 5mg tablet PO SCH (21:32)
[2017-06-27] MEDS: metoprolol tartrate 12.5mg (1/2 tablet) CORPAK SCH (21:34)
[2017-06-27] MEDS: insulin glargine (Lantus) pen - multi-dose SQ SCH (21:37)
[2017-06-27] MEDS: HYDROcodone/acetaminophen 10/325mg tab PO PRN (21:51)
[2017-06-28] VITALS (19 sets, daily range): BP systolic 139–177; BP diastolic 65–96
[2017-06-28] MEDS: heparin, porcine 5000 units/ml vial SQ SCH ×2 (01:04→09:01)
[2017-06-28] MEDS: gabapentin 300mg capsule PO SCH ×3 (01:04→17:49)
[2017-06-28] MEDS: piperacillin/tazo 3.375gm/50ml 50 ML IV SCH ×4 (02:56→20:27)
[2017-06-28] MEDS: methylPREDNISolone sod succ/PF 40mg inj. IV SCH ×3 (02:56→20:27)
[2017-06-28] MEDS: insulin regular, human vial - multi-dose SQ SCH ×4 (02:57→20:41)
[2017-06-28] MEDS: ipratropium/albuterol 3ml nebule IH SCH ×4 (03:08→20:42)
[2017-06-28] MEDS: hydrALAZINE 20mg/ml inj. IV PRN ×2 (05:26→17:49)
[2017-06-28 05:30] LABS: BASOPHILS % (AUTO) 0 % (0-1); EOSINOPHILS % (AUTO) 0 % (0-6); HEMATOCRIT 31.2 % (35.0-45.0); HEMOGLOBIN 9.9 g/dl (12.0-16.0); LYMPHOCYTES # (AUTO) 0.6 X10'3 (1.1-4.8); LYMPHOCYTES % (AUTO) 3.7 % (21-51); MEAN CORPUSCULAR HEMOGLOBIN 24.4 PG (27.0-31.0); MEAN CORPUSCULAR HGB CONC 31.9 % (33.0-36.5); MEAN CORPUSCULAR VOLUME 76.6 FL (78-98); MEAN PLATELET VOLUME 8.3 FL (7.4-10.4); MONOCYTES # (AUTO) 0.2 X10'3 (0-0.9); MONOCYTES % (AUTO) 1.2 % (2-12); NEUTROPHILS # (AUTO) 15.1 X10'3 (1.8-7.7); NEUTROPHILS % (AUTO) 95.1 % (42-75); PLATELET COUNT 238 X10'3 (140-440); RED BLOOD COUNT 4.07 X10'6 (4.20-5.60); RED CELL DISTRIBUTION WIDTH 24.1 % (11.5-14.5); WHITE BLOOD COUNT 15.9 X10'3 (4.5-11.0)
[2017-06-28 05:52] LABS: ALANINE AMINOTRANSFERASE 14 U/L (12-78); ALBUMIN 2.1 G/DL (3.4-5.0); ALBUMIN/GLOBULIN RATIO 0.5 (1.1-1.5); ALKALINE PHOSPHATASE 54 IU/L (46-116); ANION GAP 6 (8-16); ASPARTATE AMINO TRANSFERASE 10 U/L (10-37); BILIRUBIN,TOTAL 0.5 MG/DL (0.1-1.0); BLOOD UREA NITROGEN 46 MG/DL (7-18); BUN/CREATININE RATIO 36.2 (6.6-38.0); CALCIUM 9.7 MG/DL (8.5-10.1); CHLORIDE 103 MMOL/L (99-107); CREATININE 1.27 MG/DL (0.40-0.90); GLUCOSE 345 MG/DL (70-104); MAGNESIUM 2.3 MG/DL (1.5-2.4); PHOSPHORUS 2.5 MG/DL (2.3-4.5); PREALBUMIN 15.1 MG/DL (19-36); SODIUM 144 MMOL/L (135-145); TOTAL CARBON DIOXIDE 34.8 MMOL/L (24-32); eGFR 40 ML/MIN
[2017-06-28] MEDS: potassium Cl oral solution 20 MEQ/15 ML PO SCH (08:00)
[2017-06-28] MEDS: K and/or MAG REPLACEMENT MC SCH (08:00)
[2017-06-28] MEDS: lisinopril 5mg tablet PO SCH (09:00)
[2017-06-28] MEDS: atorvastatin 20mg tablet PO SCH (09:00)
[2017-06-28] MEDS: furosemide 40mg tablet PO SCH (09:00)
[2017-06-28] MEDS: montelukast 10mg tablet PO SCH (09:00)
[2017-06-28] MEDS: pregabalin 75mg capsule PO SCH (09:00)
[2017-06-28] MEDS: metolazone 2.5mg tablet PO SCH (09:00)
[2017-06-28] MEDS: metoprolol tartrate 12.5mg (1/2 tablet) CORPAK SCH ×2 (09:00→20:27)
[2017-06-28] MEDS ORDERED: VANCOMYCIN LEVEL IV ONE (10:30)
[2017-06-28] MEDS ORDERED: multivitamins, therapeutics tablet PO SCH (11:04)
[2017-06-28] MEDS ORDERED: diphenhydrAMINE 50 mg/ml inj IV ONE (12:20)
[2017-06-28] MEDS: vancomycin inj 1,250 MG in normal saline 250ml IV soln 250 ML IV SCH (12:24)
[2017-06-28] MEDS ORDERED: potassium Cl oral solution 20 MEQ/15 ML PO PRN (12:35)
[2017-06-28] MEDS: potassium Cl oral solution 20 MEQ/15 ML PO PRN ×2 (13:29→17:33)
[2017-06-28] MEDS: HYDROcodone/acetaminophen 10/325mg tab PO PRN (17:20)
[2017-06-28] MEDS: lactobacillus rhamnosus 10,000 MMU CELLS/CAPSULE PO SCH (17:49)
[2017-06-28] MEDS: apixaban 5mg tablet PO SCH (20:28)
[2017-06-28] MEDS: insulin glargine (Lantus) pen - multi-dose SQ SCH (20:39)
[2017-06-29] VITALS (22 sets, daily range): BP systolic 128–184; BP diastolic 65–99
[2017-06-29] MEDS: gabapentin 300mg capsule PO SCH ×3 (00:09→15:46)
[2017-06-29] MEDS: HYDROcodone/acetaminophen 10/325mg tab PO PRN (00:12)
[2017-06-29] MEDS ORDERED: LORazepam 2 mg/ml vial IV ONE (00:30)
[2017-06-29] MEDS: ipratropium/albuterol 3ml nebule IH SCH ×4 (02:30→20:37)
[2017-06-29] MEDS: piperacillin/tazo 3.375gm/50ml 50 ML IV SCH ×4 (02:55→21:33)
[2017-06-29] MEDS: insulin regular, human vial - multi-dose SQ SCH ×4 (02:59→20:49)
[2017-06-29 06:24] LABS: BASOPHILS % (AUTO) 0.1 % (0-1); EOSINOPHILS # (AUTO) 0.3 X10'3 (0-0.9); EOSINOPHILS % (AUTO) 1.3 % (0-6); HEMOGLOBIN 11.5 g/dl (12.0-16.0); LYMPHOCYTES # (AUTO) 1.2 X10'3 (1.1-4.8); LYMPHOCYTES % (AUTO) 4.8 % (21-51); MEAN CORPUSCULAR HEMOGLOBIN 24.5 PG (27.0-31.0); MEAN CORPUSCULAR VOLUME 76.6 FL (78-98); MONOCYTES # (AUTO) 0.6 X10'3 (0-0.9); MONOCYTES % (AUTO) 2.3 % (2-12); NEUTROPHILS # (AUTO) 22.4 X10'3 (1.8-7.7); NEUTROPHILS % (AUTO) 91.5 % (42-75); PLATELET COUNT 283 X10'3 (140-440); RED CELL DISTRIBUTION WIDTH 23.8 % (11.5-14.5); WHITE BLOOD COUNT 24.5 X10'3 (4.5-11.0)
[2017-06-29 07:01] LABS: ALANINE AMINOTRANSFERASE 18 U/L (12-78); ALBUMIN 2.5 G/DL (3.4-5.0); ALBUMIN/GLOBULIN RATIO 0.6 (1.1-1.5); ALKALINE PHOSPHATASE 62 IU/L (46-116); ANION GAP 8 (8-16); ASPARTATE AMINO TRANSFERASE 13 U/L (10-37); BILIRUBIN,TOTAL 0.7 MG/DL (0.1-1.0); BLOOD UREA NITROGEN 46 MG/DL (7-18); BUN/CREATININE RATIO 41.8 (6.6-38.0); CALCIUM 10.6 MG/DL (8.5-10.1); CHLORIDE 101 MMOL/L (99-107); GLUCOSE 198 MG/DL (70-104); PHOSPHORUS 2.1 MG/DL (2.3-4.5); POTASSIUM 3.4 MMOL/L (3.5-5.1); SODIUM 145 MMOL/L (135-145); TOTAL CARBON DIOXIDE 35.7 MMOL/L (24-32); TOTAL PROTEIN 6.8 G/DL (6.4-8.2); eGFR 48 ML/MIN
[2017-06-29] MEDS: lactobacillus rhamnosus 10,000 MMU CELLS/CAPSULE PO SCH ×2 (07:57→15:46)
[2017-06-29] MEDS: furosemide 40mg tablet PO SCH (07:58)
[2017-06-29] MEDS: methylPREDNISolone sod succ/PF 40mg inj. IV SCH ×2 (07:58→20:34)
[2017-06-29] MEDS: metoprolol tartrate 12.5mg (1/2 tablet) CORPAK SCH ×2 (07:58→20:34)
[2017-06-29] MEDS: pregabalin 75mg capsule PO SCH (07:59)
[2017-06-29] MEDS: atorvastatin 20mg tablet PO SCH (07:59)
[2017-06-29] MEDS: potassium Cl oral solution 20 MEQ/15 ML PO SCH (08:00)
[2017-06-29] MEDS: montelukast 10mg tablet PO SCH (08:00)
[2017-06-29] MEDS: metolazone 2.5mg tablet PO SCH (08:00)
[2017-06-29] MEDS: multivitamin oral liquid (Certavite) 5ml cup CORPAK SCH (08:00)
[2017-06-29] MEDS: lisinopril 5mg tablet PO SCH (08:00)
[2017-06-29] MEDS: K and/or MAG REPLACEMENT MC SCH (08:00)
[2017-06-29 08:05] LABS: NEUTROPHILS % (MANUAL) 94 % (42-75); TOTAL CELLS COUNTED 100
[2017-06-29 08:06] LABS: ANISOCYTOSIS 3+; HYPOCHROMASIA 1+; LYMPHOCYTES % (MANUAL) 1 % (21-51); METAMYLEOCYTES% (MANUAL) 1 % (0-0); MONOCYTES % (MANUAL) 4 % (2-12); PLATELET ESTIMATE NORMAL
[2017-06-29] MEDS: insulin glargine (Lantus) pen - multi-dose SQ SCH ×3 (08:10→21:00)
[2017-06-29] MEDS: potassium Cl 40MEQ/250ML bag 250 ML IV PRN (09:33)
[2017-06-29] MEDS ORDERED: VANCOMYCIN LEVEL IV ONE (10:30)
[2017-06-29] MEDS: vancomycin inj 1,250 MG in normal saline 250ml IV soln 250 ML IV SCH (10:51)
[2017-06-29] MEDS: hydrALAZINE 20mg/ml inj. IV PRN (14:17)
[2017-06-29] MEDS ORDERED: sodium phosphate inj. 15 MMOL in dextrose 5%-water 150 ML IV PRN (15:15)
[2017-06-29] MEDS ORDERED: sodium phosphate inj. 30 MMOL in dextrose 5%-water 250 ML IV PRN (15:15)
[2017-06-29] MEDS: apixaban 5mg tablet PO SCH (20:34)
[2017-06-30] VITALS (21 sets, daily range): BP systolic 117–184; BP diastolic 61–92
[2017-06-30] MEDS: gabapentin 300mg capsule PO SCH ×3 (00:38→15:48)
[2017-06-30] MEDS: piperacillin/tazo 3.375gm/50ml 50 ML IV SCH ×3 (02:08→14:56)
[2017-06-30] MEDS: insulin regular, human vial - multi-dose SQ SCH ×3 (02:11→14:58)
[2017-06-30] MEDS: ipratropium/albuterol 3ml nebule IH SCH ×4 (03:08→20:25)
[2017-06-30] MEDS: HYDROcodone/acetaminophen 10/325mg tab PO PRN (04:39)
[2017-06-30 05:20] LABS: BASOPHILS % (AUTO) 0.1 % (0-1); EOSINOPHILS # (AUTO) 0.5 X10'3 (0-0.9); EOSINOPHILS % (AUTO) 2.1 % (0-6); HEMOGLOBIN 13.2 g/dl (12.0-16.0); LYMPHOCYTES # (AUTO) 1.2 X10'3 (1.1-4.8); LYMPHOCYTES % (AUTO) 4.9 % (21-51); MEAN CORPUSCULAR HEMOGLOBIN 24.1 PG (27.0-31.0); MEAN CORPUSCULAR HGB CONC 31.5 % (33.0-36.5); MEAN CORPUSCULAR VOLUME 76.5 FL (78-98); MEAN PLATELET VOLUME 9.6 FL (7.4-10.4); MONOCYTES # (AUTO) 0.6 X10'3 (0-0.9); MONOCYTES % (AUTO) 2.5 % (2-12); NEUTROPHILS # (AUTO) 21.5 X10'3 (1.8-7.7); NEUTROPHILS % (AUTO) 90.4 % (42-75); PLATELET COUNT 281 X10'3 (140-440); RED BLOOD COUNT 5.49 X10'6 (4.20-5.60); RED CELL DISTRIBUTION WIDTH 23.6 % (11.5-14.5); WHITE BLOOD COUNT 23.8 X10'3 (4.5-11.0)
[2017-06-30 05:36] LABS: ALANINE AMINOTRANSFERASE 19 U/L (12-78); ALBUMIN 2.6 G/DL (3.4-5.0); ALBUMIN/GLOBULIN RATIO 0.6 (1.1-1.5); ALKALINE PHOSPHATASE 65 IU/L (46-116); ANION GAP 5 (8-16); ASPARTATE AMINO TRANSFERASE 16 U/L (10-37); BILIRUBIN,TOTAL 0.8 MG/DL (0.1-1.0); BLOOD UREA NITROGEN 48 MG/DL (7-18); BUN/CREATININE RATIO 46.6 (6.6-38.0); CALCIUM 10.9 MG/DL (8.5-10.1); CHLORIDE 97 MMOL/L (99-107); CREATININE 1.03 MG/DL (0.40-0.90); GLUCOSE 261 MG/DL (70-104); MAGNESIUM 1.8 MG/DL (1.5-2.4); POTASSIUM 3.3 MMOL/L (3.5-5.1); SODIUM 141 MMOL/L (135-145); TOTAL CARBON DIOXIDE 39.3 MMOL/L (24-32); eGFR 52 ML/MIN
[2017-06-30 06:42] LABS: ANISOCYTOSIS 3+; LYMPHOCYTES % (MANUAL) 7 % (21-51); METAMYLEOCYTES% (MANUAL) 4 % (0-0); MONOCYTES % (MANUAL) 2 % (2-12); NEUTROPHILS % (MANUAL) 87 % (42-75); PLATELET ESTIMATE NORMAL; TOTAL CELLS COUNTED 100
[2017-06-30 06:43] LABS: SCHISTOCYTES FEW; TARGET CELLS FEW
[2017-06-30] MEDS: K and/or MAG REPLACEMENT MC SCH (08:00)
[2017-06-30] MEDS: multivitamin oral liquid (Certavite) 5ml cup CORPAK SCH (08:00)
[2017-06-30] MEDS: methylPREDNISolone sod succ/PF 40mg inj. IV SCH (08:48)
[2017-06-30] MEDS: metoprolol tartrate 12.5mg (1/2 tablet) CORPAK SCH (08:49)
[2017-06-30] MEDS: pregabalin 75mg capsule PO SCH (08:49)
[2017-06-30] MEDS: atorvastatin 20mg tablet PO SCH (08:49)
[2017-06-30] MEDS: furosemide 40mg tablet PO SCH (08:49)
[2017-06-30] MEDS: montelukast 10mg tablet PO SCH (08:49)
[2017-06-30] MEDS: lisinopril 5mg tablet PO SCH (08:49)
[2017-06-30] MEDS: lactobacillus rhamnosus 10,000 MMU CELLS/CAPSULE PO SCH (08:49)
[2017-06-30] MEDS: potassium Cl oral solution 20 MEQ/15 ML PO SCH (08:50)
[2017-06-30] MEDS: insulin glargine (Lantus) pen - multi-dose SQ SCH (08:52)
[2017-06-30] MEDS: metolazone 2.5mg tablet PO SCH (08:56)
[2017-06-30] MEDS: vancomycin inj 1,250 MG in normal saline 250ml IV soln 250 ML IV SCH (10:38)
[2017-06-30] MEDS: potassium Cl oral solution 20 MEQ/15 ML PO PRN (11:14)
[2017-06-30] MEDS ORDERED: lactobacillus rhamnosus 10,000 MMU CELLS/CAPSULE PO SCH (20:00)
== END 2017-06-30 20:55 | DRG 871 ==
LOC: ER 05:25 → ED HOLD 09:59 → EDBEDREQ 11:27 → CICU 2S 13:32 → ICU 2S 06-29 06:19
PROVIDERS: ADMIT Internal Medicine Nephrology
PROC: 5A09357 Assistance with Respiratory Ventilation, Less than 24 Consecutive Hours, Continuous Positive Airway Pressure (ICD-10-PCS; principal; 2017-06-25)
PROC: B3201ZZ Computerized Tomography (CT Scan) of Thoracic Aorta using Low Osmolar Contrast (ICD-10-PCS; 2017-06-25)
PROC: 02HV33Z Insertion of Infusion Device into Superior Vena Cava, Percutaneous Approach (ICD-10-PCS; 2017-06-25)
PROC: 5A09357 Assistance with Respiratory Ventilation, Less than 24 Consecutive Hours, Continuous Positive Airway Pressure (ICD-10-PCS; 2017-06-26)
DX: A41.9 Sepsis, unspecified organism (principal); G93.41 Metabolic encephalopathy; I63.9 Cerebral infarction, unspecified; J96.21 Acute and chronic respiratory failure with hypoxia; E87.4 Mixed disorder of acid-base balance; E44.0 Moderate protein-calorie malnutrition; R13.12 Dysphagia, oropharyngeal phase; J18.1 Lobar pneumonia, unspecified organism; I50.41 Acute combined systolic (congestive) and diastolic (congestive) heart failure; E27.40 Unspecified adrenocortical insufficiency; I48.92 Unspecified atrial flutter; J44.0 Chronic obstructive pulmonary disease with (acute) lower respiratory infection; J44.1 Chronic obstructive pulmonary disease with (acute) exacerbation; I48.91 Unspecified atrial fibrillation; E83.52 Hypercalcemia; X58.XXXD Exposure to other specified factors, subsequent encounter; G47.33 Obstructive sleep apnea (adult) (pediatric); I11.0 Hypertensive heart disease with heart failure; I45.81 Long QT syndrome; E11.9 Type 2 diabetes mellitus without complications; E86.9 Volume depletion, unspecified; K21.9 Gastro-esophageal reflux disease without esophagitis; Z60.2 Problems related to living alone; Z90.49 Acquired absence of other specified parts of digestive tract; Z88.5 Allergy status to narcotic agent; Z79.899 Other long term (current) drug therapy; Z79.52 Long term (current) use of systemic steroids; S82.852D Displaced trimalleolar fracture of left lower leg, subsequent encounter for closed fracture with routine healing; Z68.28 Body mass index [BMI] 28.0-28.9, adult
CPT/HCPCS: 36415; 36556; 36600; 70450; 71045; 71260; 73610; 74018; 80053; 80202; 81001; 82803; 82810; 82948; 83036; 83605; 83735; 83880; 84100; 84132; 84134; 84145; 84484; 85018; 85025; 85379; 85610; 85730; 87040; 87070; 87077; 87186; 87502; 87503; 92616; 93005; 94640; 94660; 94760; 96361; 96365; 96368; 96375; 97110; 97116; 97162; 97530; 99285; A4357; A6213; A6258; A6402; C1758; C9113; J0360; J0692; J1200; J1644; J1815; J1940; J1956; J2060; J2543; J2920; J2930; J3370; J3475; J3480; J7030; J7060; Q9967